=== PATIENT | male | born 1950 | race Hispanic/Latino ===

== ENCOUNTER 2017-03-16 20:38 | Emergency (ER) | payer MEDICARE, OTHER ==
[2017-03-16 20:38] VITALS: BMI 22.8
[2017-03-16 20:44] VITALS: BP 153/102; PULSE 94; RESP 18; TEMP 98; O2SAT 100
--- NOTE | 2017-03-16 21:04 | ED PDOC ---
HPI: Psych/Substance Abuse Time Seen by Provider: 03/16/17 20:48 Chief Complaint (Nursing): Alcohol Ingestion Chief Complaint (Provider): etoh History Per: Patient, EMS Additional History Per: Patient, EMS Additional Complaint(s): 67 y/o male brought in by EMS for eval of possible alcohol intoxication. Patient states he was locked out of his apartment due to financial issues so he went to sleep in front of his door. Patient states he was woken up by EMS and brought here. Patient admits to drinking tonight. Denies acute medical or psychiatric complaints. Past Medical History Reviewed: Historical Data, Nursing Documentation, Vital Signs Vital Signs: Last Vital Signs Temp 98 F 03/16/17 20:41 Pulse 94 H 03/16/17 20:41 Resp 18 03/16/17 20:41 BP 153/102 H 03/16/17 20:41 Pulse Ox 100 03/16/17 20:41 - Medical History PMH: Atrial Fibrillation, Back Problems, Benign Prostatic Hyperplasia, Fractures (r ankle fracture), HTN, Pulmonary Embolism Denies: HIV, Chronic Kidney Disease - Surgical History Surgical History: Tonsillectomy - Family History Family History: States: Unknown Family Hx - Home Medications Home Medications: Ambulatory Orders Medication Instructions Recorded Finasteride [Proscar] 5 mg PO DAILY 09/19/16 Naproxen [Naprosyn Tab] 250 mg PO BID PRN 09/19/16 Tamsulosin [Flomax] 0.4 mg PO DAILY 09/19/16 oxyCODONE/Acetaminophen [Percocet 1 tab PO QID PRN #20 tab 09/19/16 5/325 mg Tab] Ascorbate Calcium [Vitamin C] 500 mg PO DAILY 10/06/16 Bimatoprost [Lumigan] 1 drop EACHEYE HS 10/06/16 Multivitamin [Multi-Vitamin Daily] 1 tab PO DAILY 10/06/16 Timolol [Betimol] 1 drop EACHEYE DAILY 10/06/16 Vitamin B Complex [Super B-50 1 cap PO DAILY 10/06/16 Complex] Folic Acid 1 mg PO DAILY tab 10/09/16 Bimatoprost [Lumigan] 1 drop EACHEYE HS 10/17/16 Famotidine [Pepcid] 20 mg PO DAILY tab 10/17/16 Finasteride [Proscar] 5 mg PO DAILY tab 10/17/16 Latanoprost 0.005% Opht [Xalatan 1 drop OU HS bottle 10/17/16 Opht] Metoprolol Tartrate [Lopressor] 12.5 mg PO Q12 tab 10/17/16 Rivaroxaban [Xarelto] 15 mg PO BIDWM #60 tab 10/17/16 Thiamine [Vitamin B1 Tab] 100 mg PO DAILY #30 tab 10/17/16 - Allergies Allergies/Adverse Reactions: Allergies Allergy/AdvReac Type Severity Reaction Status Date / Time PCN Allergy Uncoded 09/19/16 13:14 Review of Systems ROS Statement: Except As Marked, All Systems Reviewed And Found Negative Physical Exam - Reviewed Nursing Documentation Reviewed: Yes Vital Signs Reviewed: Yes - Physical Exam Appears: Positive for: Well, Non-toxic, No Acute Distress Head Exam: Positive for: ATRAUMATIC, NORMAL INSPECTION, NORMOCEPHALIC Skin: Positive for: Normal Color Eye Exam: Positive for: Normal appearance ENT: Positive for: Normal ENT Inspection Cardiovascular/Chest: Positive for: Regular Rate, Rhythm Respiratory: Positive for: Normal Breath Sounds Gastrointestinal/Abdominal: Positive for: Normal Exam Back: Positive for: Normal Inspection Extremity: Positive for: Normal ROM Neurologic/Psych: Positive for: Alert, Oriented - Laboratory Results Result Diagrams: 03/16/17 21:48 03/16/17 21:48 - ECG O2 Sat by Pulse Oximetry: 100 ED OBSERVATION Discharge: Yes Date of observation admission: 03/16/17 Time of observation admission: 22:48 - Observation admission statement Patient is being placed in observation because:: acute alcohol intoxication - Goals of Observation Goals of observation are:: observe for clinical sobriety - Progress Note Progress Note: 03/16/17 22:48 patient sleeping; arousable to verbal stimuli 03/17/17 2:00 Patient slepeing; arousable to verbal stimuli 5:00 Patient awake, alert, oriented x3; ambulating steady gait. Stable for discharge. Disposition - Clinical Impression Clinical Impression: Alcohol intoxication - Patient ED Disposition Is Patient to be Admitted: No - Disposition Disposition: Routine/Home Disposition Time: 04:55 Condition: STABLE Instructions: Alcohol Intoxication (ED)
[2017-03-16 22:27] LABS: ALB/GLOB RATIO 1.7 (1.0-2.1); ALKALINE PHOSPHATASE 45 U/L (38-126); ALT/SGPT 170 U/L (21-72); AST/SGOT 286 U/L (17-59); BILIRUBIN,TOTAL 0.9 mg/dl (0.2-1.3); BLOOD UREA NITROGEN 12 mg/dl (9-20); CALCIUM 8.6 mg/dL (8.4-10.2); CARBON DIOXIDE 26 mmol/L (22-30); CHLORIDE 106 mmol/L (98-107); GFR AFRICAN-AMERICAN > 60; GLUCOSE,RANDOM 96 mg/dL (75-110); POTASSIUM 3.4 MMOL/L (3.6-5.0); SODIUM 148 mmol/l (132-148); TOTAL PROTEIN 6.6 G/DL (6.3-8.2)
[2017-03-16 22:39] LABS: BASO % 0.4 % (0.0-2.0); EOS # 0.1 K/uL (0.0-0.7); EOS % 4.6 % (0.0-4.0); HEMATOCRIT 42.7 % (35.0-51.0); LYMPH # 0.6 K/uL (1.0-4.3); LYMPH % 20.9 % (20.0-40.0); MEAN CELL VOLUME 93.1 fl (80.0-94.0); MEAN CORPUSCULAR HEMOGLOBIN 30.7 pg (27.0-31.0); MEAN CORPUSCULAR HGB CONC 32.9 g/dL (33.0-37.0); MONO # 0.5 K/uL (0.0-0.8); MONO % 16.1 % (0.0-10.0); NEUT # 1.6 K/uL (1.8-7.0); NRBC % 0.6 % (0.0-0.0); RED CELL DISTRIBUTION WIDTH 13.8 % (11.5-14.5); WHITE BLOOD COUNT 2.8 K/uL (4.8-10.8)
[2017-03-16 22:46] LABS: ALCOHOL SERUM 369 mg/dl (0-10)
== END 2017-03-17 06:26 | disposition home or self-care (01) ==
LOC: H.ER 20:38
DX: F10.129 Alcohol abuse with intoxication, unspecified (principal)

== ENCOUNTER 2017-03-17 17:46 | Inpatient (IN) | payer MEDICARE, OTHER ==
[2017-03-17 17:47] VITALS: BMI 22.8
[2017-03-17] MEDS ORDERED: Multivitamin (MVI) 10 ML, Thiamine 100 MG, Folic Acid 1 MG in Sodium Chloride 0.9% 1,00... IV ONE (18:14)
--- NOTE | 2017-03-17 18:41 | ED PDOC ---
HPI: Psych/Substance Abuse Chief Complaint (Provider): Weakness, Shaking ED Caveat: Acuity of Condition History Per: Patient History/Exam Limitations: no limitations Onset/Duration Of Symptoms: Hrs Current Symptoms Are (Timing): Still Present Suicide/Self Injury Attempted (Context): None Ingestion Of Substance: etoh Modifying Factor(s): Alcohol Associated Symptoms: denies: Anger, Depression, Paranoia, Suicidal Thoughts, Suicidal Plan Involuntary Hold By: None Additional Complaint(s): 67 yo M w PMHx of HTN and chronic alcohol consumption presents to ER due to weakness and unsteady gate. He states that he cannot walk without assistance and that he is disoriented, despite his correct answers indicating otherwise. Pt had previously been in the ER overnight for etoh intoxication. He had been discharged upon improvement and stabilization of symptoms following his intoxication. He presently denies any etoh consumption during the day today. He also denies any nausea, vomiting, hallucinations, or suicidal thoughts. Otherwise, he denies chest pain, palpitations, SOB, dyspnea, cough, abdominal pain, hematuria, dysuria, or myalgias. <Michi Lovelace - Last Filed: 03/17/17 18:34> <Norma Read - Last Filed: 03/20/17 22:05> Time Seen by Provider: 03/17/17 18:11 Chief Complaint (Nursing): Weakness/Neurological Deficit Supervising Attending Note - Supervising Attending Note The Documented history was done by the: Physician Assistant Men'S Lacrosse Coach, Attending Physician The documented physical exam was done by the: Physician Assistant Men'S Lacrosse Coach, Attending Physician - Attestation: I have personally seen and examined this patient.: Yes I have fully participated in the care of the patient.: Yes I have reviewed all pertinent clinical information, including history, physical exam and plan: Yes <Norma Read - Last Filed: 03/20/17 22:05> Past Medical History Reviewed: Historical Data, Nursing Documentation, Vital Signs Vital Signs: Last Vital Signs Temp 97.1 F L 03/17/17 17:49 Pulse 136 H 03/17/17 17:49 Resp 18 03/17/17 17:49 BP 132/100 H 03/17/17 17:49 Pulse Ox 96 03/17/17 17:49 - Medical History PMH: Atrial Fibrillation, Back Problems, Benign Prostatic Hyperplasia, Fractures (r ankle fracture), HTN, Pulmonary Embolism Denies: HIV, Chronic Kidney Disease - Surgical History Surgical History: Tonsillectomy - Family History Family History: States: Unknown Family Hx <Michi Lovelace T - Last Filed: 03/17/17 18:34> Vital Signs: Last Vital Signs Temp 98.6 F 03/17/17 19:40 Pulse 114 H 03/17/17 19:37 Resp 18 03/17/17 19:37 BP 106/67 03/17/17 19:37 Pulse Ox 96 03/17/17 19:37 <Norma Read - Last Filed: 03/20/17 22:05> - Home Medications Home Medications: Ambulatory Orders Medication Instructions Recorded Naproxen [Naprosyn Tab] 250 mg PO BID PRN 09/19/16 Tamsulosin [Flomax] 0.4 mg PO DAILY 09/19/16 Ascorbate Calcium [Vitamin C] 500 mg PO DAILY 10/06/16 Bimatoprost [Lumigan] 1 drop EACHEYE HS 10/06/16 Multivitamin [Multi-Vitamin Daily] 1 tab PO DAILY 10/06/16 Timolol [Betimol] 1 drop EACHEYE DAILY 10/06/16 Vitamin B Complex [Super B-50 1 cap PO DAILY 10/06/16 Complex] Folic Acid 1 mg PO DAILY tab 10/09/16 Finasteride [Proscar] 5 mg PO DAILY tab 10/17/16 Latanoprost 0.005% Opht [Xalatan 1 drop OU HS bottle 10/17/16 Opht] Rivaroxaban [Xarelto] 15 mg PO BIDWM #60 tab 10/17/16 Thiamine [Vitamin B1 Tab] 100 mg PO DAILY #30 tab 10/17/16 - Allergies Allergies/Adverse Reactions: Allergies Allergy/AdvReac Type Severity Reaction Status Date / Time PCN Allergy RASH Uncoded 03/17/17 19:39 Review of Systems ROS Statement: Except As Marked, All Systems Reviewed And Found Negative (see HPI) <Michi Lovelace T - Last Filed: 03/17/17 18:34> Physical Exam - Reviewed Nursing Documentation Reviewed: Yes Vital Signs Reviewed: Yes - Physical Exam Appears: Positive for: Non-toxic, No Acute Distress Head Exam: Positive for: ATRAUMATIC, NORMAL INSPECTION, NORMOCEPHALIC Skin: Positive for: Normal Color, Warm, Diaphoresis (mild) Eye Exam: Positive for: Normal appearance, EOMI ENT: Negative for: Pharyngeal Erythema Neck: Positive for: Normal, Painless ROM Cardiovascular/Chest: Positive for: Tachycardia, Other (Regular Rhythm). Negative for: Edema Respiratory: Positive for: Normal Breath Sounds. Negative for: Wheezing Gastrointestinal/Abdominal: Positive for: Normal Exam, Soft. 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, Oriented, Other (+tremors, especially b/l upper extremities) <Michi Lovelace - Last Filed: 03/17/17 18:34> - ECG O2 Sat by Pulse Oximetry: 96 - Progress ED Course And Treament: 67 yo M w PMHx of HTN and chronic alcohol consumption presents to ER due to weakness and unsteady gate -CBC -CMP -PT/PTT -VBG -EKG -Alcohol Serum -CMP -CPK -Urine Drug Screen -Lipase -Mg/Phos -Trop -FS Glucose -Banana Bag -NS 1L @ 125mL/hr -Librium 25mg PO STAT -Ativan 1mg IVP STAT -To be admitted for etoh withdrawal, pending ER labs <Michi Lovelace - Last Filed: 03/17/17 18:34> - Laboratory Results Result Diagrams: 03/20/17 09:15 03/20/17 09:15 - ECG ECG: Positive for: Interpreted By Me ECG Rhythm: Positive for: Sinus Tachycardia, Nonspecific Changes Pulse Ox Interpretation: Normal - Radiology X-Ray: Interpreted by Me X-Ray Interpretation: Cardiomegaly (perihilar thickening) - Progress ED Course And Treament: 730p Pt's troponin elevated On reevaluation, pt reports feeling better post ativan 1mg but still tachycardic and slightly tremorous. He denies having any chest pain or shortness of breath. +history atrial fib and htn and reports compliance w medication ?Reports last saw tire tester Dr Arredondo 2 weeks ago and having a stress test 3 weeks ago that was normal. DW Dr Ayala medical service and Dr Lemus cardiology. ASA ordered. - Critical Care Total Time (In Min): 30 Documented Critical Care: Time excludes all time spent performint seperately billable procedures <Norma Read - Last Filed: 03/20/17 22:05> Disposition - Patient ED Disposition Is Patient to be Admitted: Yes - Disposition Disposition Time: 18:45 <Michi Lovelace - Last Filed: 03/17/17 18:34> Counseled Patient/Family Regarding: Studies Performed, Diagnosis - Pt Status Changed To: Hospital Disposition Of: Inpatient - Admit Certification Admit to Inpatient:: After my assessment, the patient will require hospitalization for at least two midnights. This is because of the severity of symptoms shown, intensity of services needed, and/or the medical risk in this patient being treated as an outpatient. - POA Present On Arrival: None <Norma Read - Last Filed: 03/20/17 22:05> - Clinical Impression Clinical Impression: Alcoholism /alcohol abuse, Elevated troponin, Alcohol withdrawal - Disposition Condition: GUARDED
[2017-03-17 18:42] LABS: BASO # 0.1 K/uL (0.0-0.2); HEMATOCRIT 46.2 % (35.0-51.0); LYMPH # 0.2 K/uL (1.0-4.3); LYMPH % 3.5 % (20.0-40.0); MEAN CELL VOLUME 94.4 fl (80.0-94.0); MEAN CORPUSCULAR HEMOGLOBIN 30.8 pg (27.0-31.0); MEAN CORPUSCULAR HGB CONC 32.6 g/dL (33.0-37.0); MEAN PLATELET VOLUME 9.2 fl (7.2-11.7); MONO # 0.8 K/uL (0.0-0.8); MONO % 11.8 % (0.0-10.0); NEUT % 83.7 % (50.0-75.0); NRBC % 0.1 % (0.0-0.0); PLATELET COUNT 127 K/uL (130-400); RED CELL DISTRIBUTION WIDTH 13.8 % (11.5-14.5); WHITE BLOOD COUNT 7.1 K/uL (4.8-10.8)
[2017-03-17 18:55] LABS: PARTIAL THROMBOPLASTIN TIME 22.1 Seconds (25.6-37.1)
[2017-03-17 19:02] LABS: ALB/GLOB RATIO 1.8 (1.0-2.1); ALCOHOL SERUM < 10 mg/dl (0-10); ALKALINE PHOSPHATASE 54 U/L (38-126); ALT/SGPT 180 U/L (21-72); AST/SGOT 276 U/L (17-59); BILIRUBIN,TOTAL 3.5 mg/dl (0.2-1.3); BLOOD UREA NITROGEN 18 mg/dl (9-20); CALCIUM 9.2 mg/dL (8.4-10.2); CARBON DIOXIDE 22 mmol/L (22-30); CHLORIDE 95 mmol/L (98-107); GFR AFRICAN-AMERICAN > 60; GLUCOSE,RANDOM 161 mg/dL (75-110); LIPASE 143 U/L (23-300); MAGNESIUM 1.2 MG/DL (1.6-2.3); PHOSPHOROUS 2.2 mg/dl (2.5-4.5); POTASSIUM 3.6 MMOL/L (3.6-5.0); SODIUM 141 mmol/l (132-148)
[2017-03-17 19:17] LABS: VENOUS BLOOD GAS PCO2 29 mmHg (40-60); VENOUS BLOOD PH 7.51 (7.32-7.43)
[2017-03-17] MEDS ORDERED: K-Lyte 25meq EF Tab PO ONE ×2 (19:23→19:30)
[2017-03-17] MEDS ORDERED: Magnesium Sulfate 2 gm/50 ml 2 GM/50 ML BAG IVPB ONE (19:35)
[2017-03-17] MEDS ORDERED: Potassium & Sodium Phosphate PO ONE (19:45)
[2017-03-17] MEDS ORDERED: Magnesium Sulfate 2 gm/50 ml 2 GM/50 ML BAG ONE (19:49)
[2017-03-17] MEDS ORDERED: Aspirin 325 mg EC Tablets PO ONE (19:49)
[2017-03-17 20:06] LABS: NEUTROPHIL 81 % (42-75); REACTIVE LYMPHOCYTES 1 % (0-0); TOTAL CELLS COUNTED 100
[2017-03-17 20:07] LABS: LARGE PLATELETS PRESENT
--- NOTE | 2017-03-17 21:44 | CP.PCM.CON ---
History of Present Illness - History of Present Illness History of Present Illness: 67 y/o with etoh withdrawl. had tachycardia and htn with mildly positive trop today. no cp, sob, lh, dizzyness. no hx of cad. pt has a hx of multifocal pe , no hypercoag state and no dvt. pt has a left shift w/o leukocytosis. denies f/c. not on anticoagulation, however meds are not clear at this point. Review of Systems - Constitutional Constitutional: absent: As Per HPI, Anorexia, Chills, Daytime Sleepiness, Excessive Sweating, Fatigue, Fever, Frequent Falls, Headache, Increased Appetite , Lethargy, Malaise, Night Sweats, Snoring, Sleep Apnea, Weight Gain, Weight Loss, Weakness, Other - EENT Eyes: absent: As Per HPI, Blind Spots, Blurred Vision, Change in Vision, Decreased Night Vision, Diplopia, Discharge, Dry Eye, Exophthalmos, Floaters, Irritation, Itchy Eyes, Loss of Peripheral Vision, Pain, Photophobia, Requires Corrective Lenses, Sees Flashes, Spots in Vision, Tunnel Vision, Other Visual Disturbances, Loss of Vision, Other Ears: absent: As Per HPI, Decreased Hearing, Ear Discharge, Ear Pain, Tinnitus, Abnormal Hearing, Disequilibrium, Dizziness, Other Nose/Mouth/Throat: absent: As Per HPI, Epistaxis, Nasal Congestion, Nasal Discharge, Nasal Obstruction, Nasal Trauma, Nose Pain, Post Nasal Drip, Sinus Pain, Sinus Pressure, Bleeding Gums, Change in Voice, Dental Pain, Dry Mouth, Dysphagia, Halitosis, Hoarsness, Lip Swelling, Mouth Lesions, Mouth Pain, Odynophagia, Sore Throat, Throat Swelling, Tongue Swelling, Facial Pain, Neck Pain, Neck Mass, Other - Cardiovascular Cardiovascular: Rapid Heart Rate. absent: As Per HPI, Acrocyanosis, Chest Pain , Chest Pain at Rest, Chest Pain with Activity, Claudication, Diaphoresis, Dyspnea, Dyspnea on Exertion, Edema, Irregular Heart Rhythm, Pain Radiating to Arm/Neck/Jaw, Leg Edema, Leg Ulcers, Lightheadedness, Orthopnea, Palpitations, Paroxysmal Nocturnal Dyspnea, Pedal Edema, Radiating Pain, Slow Heart Rate, Syncope, Other - Respiratory Respiratory: absent: As Per HPI, Cough, Dyspnea, Hemoptysis, Dyspnea on Exertion , Wheezing, Snoring, Stridor, Pain on Inspiration, Chest Congestion, Excessive Mucous Production, Change in Mucous Color, Pain with Coughing, Other - Gastrointestinal Gastrointestinal: absent: As Per HPI, Abdominal Pain, Belching, Bloating, Change in Bowel Habits, Change in Stool Character, Coffee Ground Emesis, Constipation, Cramping, Diarrhea, Dyspepsia, Dysphagia, Early Satiety, Excessive Flatus, Fecal Incontinence, Heartburn, Hematemesis, Hematochezia, Loose Stools, Melena, Nausea, Odynophagia, Temesmus, Vomiting, Other - Genitourinary Genitourinary: absent: As Per HPI, Change in Urinary Stream, Difficulty Urinating, Dysuria, Flank Pain, Hematuria, Pyuria, Nocturia, Urinary Incontinence, Urinary Frequency, Urinary Hesitance, Urinary Urgency, Voiding Freq/Small Amts, Freq UTI, Hx Renal/Bladder Calculi, Hx /Renal Surgery, Bladder Distension, Other - Musculoskeletal Musculoskeletal: absent: As Per HPI, Abnormal Gait, Arthralgias, Atrophy, Back Pain, Deformity, Joint Swelling, Limited Range of Motion, Loss of Height, Muscle Cramps, Muscle Weakness, Myalgias, Neck Pain, Numbness, Radiating Pain into Limb, Stiffness, Tingling, Other - Integumentary Integumentary: absent: As Per HPI, Acne, Alopecia, Bleeding Lesions, Change in Hair, Change in Nails, Change in Pigmentation, Changing Lesions, Dry Skin, Erythema, Furuncle, Hirsutism, Lesions, New Lesions, Non-Healing Lesions, Photosensitivity, Pruritus, Rash, Skin Pain, Skin Ulcer, Sores, Striae, Swelling , Unusual Bruising, Wounds, Jaundice, Other - Neurological Neurological: Abnormal Speech. absent: As Per HPI, Abnormal Gait, Abnormal Hearing, Abnormal Movements, Behavioral Changes, Burning Sensations, Confusion, Convulsions, Disequilibrium, Dizziness, Numbness, Focal Weakness, Frequent Falls , Headaches, Lack of Coordination, Loss of Vision, Memory Loss, Paresthesias, Radicular Pain, Restless Legs, Sensory Deficit, Syncope, Tingling, Tremor, Vertigo, Weakness, Other Visual Disturbances, Other - Psychiatric Psychiatric: As Per HPI - Endocrine Endocrine: absent: As Per HPI, Change in Body Appearance, Change in Libido, Cold Intolorance, Deepening of Voice, Excessive Sweating, Fatigue, Flushing, Heat Intolorance, Increase in Ring/Shoe/Hat Size, Palpitations, Polydipsia, Polyphagia, Polyuria, Other - Hematologic/Lymphatic Hematologic: absent: As Per HPI, Easy Bleeding, Easy Bruising, Lymphadenopathy, Other Past Patient History - Tetanus Immunizations Tetanus Immunization: Unknown - Past Medical History & Family History Past Medical History?: Yes - Past Social History Smoking Status: Never Smoked Alcohol: > 2 Drinks/Day Drugs: Denies Domestic Violence: Negative - CARDIAC Hx Atrial Fibrillation: Yes Hx Hypertension: Yes - PULMONARY Hx Pulmonary Embolism: Yes - NEUROLOGICAL Hx Neurological Disorder: No - HEENT Hx HEENT Problems: Yes Hx Glaucoma: Yes - RENAL Hx Chronic Kidney Disease: No - ENDOCRINE/METABOLIC Hx Endocrine Disorders: No - HEMATOLOGICAL/ONCOLOGICAL Hx Human Immunodeficiency Virus (HIV): No - INTEGUMENTARY Hx Dermatological Problems: No - MUSCULOSKELETAL/RHEUMATOLOGICAL Hx Fractures: Yes (r ankle fracture) - GASTROINTESTINAL Hx Gastrointestinal Disorders: No - GENITOURINARY/GYNECOLOGICAL Hx Genitourinary Disorders: Yes Hx Prostate Problems: Yes (BPH) - PSYCHIATRIC Hx Psychophysiologic Disorder: No Hx Substance Use: Yes (etoh) - SURGICAL HISTORY Hx Tonsillectomy: Yes - ANESTHESIA Hx Anesthesia: Yes Hx Anesthesia Reactions: No Hx Malignant Hyperthermia: No Meds Allergies/Adverse Reactions: Allergies Allergy/AdvReac Type Severity Reaction Status Date / Time PCN Allergy RASH Uncoded 03/17/17 19:39 - Medications Medications: Current Medications Multivitamins/Vitamin C 10 ml/Thiamine HCl 100 mg/ Folic Acid 1 mg/ Sodium Chloride 1,011.2 mls @ 125 mls/hr IV .[id number] ONE Stop: 03/18/17 02:19 Last Admin: 03/17/17 19:33 Dose: 125 mls/hr Physical Exam - Constitutional Appears: Toxic - Head Exam Head Exam: ATRAUMATIC, NORMAL INSPECTION, NORMOCEPHALIC - Eye Exam Eye Exam: EOMI, Normal appearance, PERRL Pupil Exam: NORMAL ACCOMODATION, PERRL - ENT Exam ENT Exam: Mucous Membranes Moist, Normal Exam - Neck Exam Neck exam: Positive for: Normal Inspection - Respiratory Exam Respiratory Exam: Clear to Auscultation Bilateral, NORMAL BREATHING PATTERN - Cardiovascular Exam Cardiovascular Exam: Tachycardia, REGULAR RHYTHM, +S1, +S2, Systolic Murmur - GI/Abdominal Exam GI & Abdominal Exam: Normal Bowel Sounds, Soft. absent: Tenderness - Rectal Exam Rectal Exam: Deferred - Extremities Exam Extremities exam: Positive for: normal inspection - Back Exam Back exam: NORMAL INSPECTION - Neurological Exam Neurological exam: Alert, Oriented x3 - Psychiatric Exam Psychiatric exam: Flat Affect - Skin Skin Exam: Normal Color Results - Vital Signs Recent Vital Signs: Last Vital Signs Temp 98.6 F 03/17/17 19:40 Pulse 114 H 03/17/17 19:37 Resp 18 03/17/17 19:37 BP 106/67 03/17/17 19:37 Pulse Ox 96 03/17/17 19:37 - Labs Result Diagrams: 03/17/17 18:30 03/17/17 18:30 Labs: Laboratory Results - last 24 hr 03/17/17 20:09 CK-MB (Mass) 2.72 - EKG Data EKG Interpreted by: Myself EKG shows normal: Sinus rhythm Rate: Tachycardia - EKG Data EKG comments: st withpvcs, no st changes Assessment & Plan (1) Alcohol withdrawal Status: Acute (2) Alcoholism /alcohol abuse Status: Acute (3) Elevated troponin Status: Acute (4) Hypertension Status: Acute (5) Pulmonary emboli Status: Chronic (6) Tachycardia Status: Acute - Assessment and Plan (Free Text) Plan: - echo - monitor trop - doppler LE's - If bp increases would use clonidine - bc x 2 r/o endocarditis (left shift w/o leukocytosis - etoh use) - pt had multifocal PE in 09/2016, no dvt and no hypercoag state. - no stress test at this time - repleat leonardo - ivf - tele monitor - 65 min total care time
[2017-03-18 02:27] LABS: RBC URINE < 1 /hpf (0-3); URINE BILIRUBIN SMALL (NEGATIVE); URINE BLOOD NEGATIVE (NEGATIVE); URINE COLOR AMBER (YELLOW); URINE GLUCOSE (UA) 150 mg/dL (Normal); URINE KETONE 80 mg/dL (NEGATIVE); URINE LEUKOCYTE ESTERASE NEG Leu/uL (Negative); URINE PROTEIN 100 mg/dL (NEGATIVE); WBC URINE 2 /hpf (0-5)
[2017-03-18 07:16] LABS: MEAN CELL VOLUME 92.2 fl (80.0-94.0); MEAN CORPUSCULAR HEMOGLOBIN 30.7 pg (27.0-31.0); MEAN CORPUSCULAR HGB CONC 33.3 g/dL (33.0-37.0); RED CELL DISTRIBUTION WIDTH 13.8 % (11.5-14.5); WHITE BLOOD COUNT 7.1 K/uL (4.8-10.8)
[2017-03-18 07:22] LABS: ALB/GLOB RATIO 1.6 (1.0-2.1); ALKALINE PHOSPHATASE 45 U/L (38-126); ALT/SGPT 137 U/L (21-72); AST/SGOT 168 U/L (17-59); BILIRUBIN,TOTAL 2.3 mg/dl (0.2-1.3); BLOOD UREA NITROGEN 19 mg/dl (9-20); CALCIUM 8.4 mg/dL (8.4-10.2); CARBON DIOXIDE 30 mmol/L (22-30); CHLORIDE 99 mmol/L (98-107); GFR AFRICAN-AMERICAN > 60; GLUCOSE,RANDOM 96 mg/dL (75-110); MAGNESIUM 1.8 MG/DL (1.6-2.3); POTASSIUM 3.4 MMOL/L (3.6-5.0); SODIUM 139 mmol/l (132-148); TOTAL PROTEIN 6.2 G/DL (6.3-8.2)
[2017-03-18 07:49] LABS: THYROID STIMULATING HORMONE 4.15 mIU/ML (0.46-4.68)
[2017-03-18] MEDS ORDERED: Patient's Own Med (Multivitamin [Multi-Vitamin Daily] 1 TAB) PO SCH (09:00)
[2017-03-18] MEDS ORDERED: TIMOLOL EACHEYE SCH (09:00)
[2017-03-18] MEDS ORDERED: ASCORBATE CALCIUM 500 MG PO SCH (09:00)
[2017-03-18] MEDS ORDERED: Patient's Own Med (Vitamin B Complex [Super B-50 Complex] 1 CAP) PO SCH (09:00)
[2017-03-18] MEDS: Multivitamin Vitamin B Complex (Nephro-Vite) Tab PO SCH (09:47)
--- NOTE | 2017-03-18 10:35 | US ---
PROCEDURE: Bilateral lower extremity venous duplex Doppler. HISTORY: hx pe/DVT COMPARISON: Bilateral lower extremity venous ultrasound performed 10/07/16 TECHNIQUE: Bilateral common femoral, superficial femoral, popliteal and posterior tibial veins were evaluated. Flow was assessed with color Doppler, compressibility, assessment of phasic flow and augmentation response. FINDINGS: COMMON FEMORAL VEIN: Right CFV: Unremarkable. Left CFV: Unremarkable. SUPERFICIAL FEMORAL VEIN: Right SFV: Unremarkable. Left SFV: Unremarkable. POPLITEAL VEIN: Right Popliteal: Unremarkable. Left Popliteal: Unremarkable. POSTERIOR TIBIAL VEIN: Right PTV: Unremarkable. Left PTV: Unremarkable. OTHER FINDINGS: None. IMPRESSION: No evidence of deep venous thrombosis.
--- NOTE | 2017-03-18 12:10 | CP.PCM.HP ---
<Tiffany Baeza - Last Filed: 03/18/17 14:51> History of Present Illness - History of Present Illness History of Present Illness: Patient seed and examined at bedside with attending. 67M p/w weakness and unsteady gate after being discharged for alcohol intoxication. He denies any visual disturbance, headaches, SOB, chest pain or palpitations associated with the unsteady gait and weakness. Otherwise, patient denies fevers, chills, N/V, diarrhea, or dysuria. PMH: h/o a-fib, HTN, BPH, h/o PE, alcohol abuse ALL: PCN FRANCI: See Med Rec Present on Admission - Present on Admission Any Indicators Present on Admission: Yes History of DVT/PE: Yes Review of Systems - Review of Systems All systems: reviewed and no additional remarkable complaints except - Constitutional Constitutional: Lethargy - EENT Ears: Dizziness Past Patient History - Tetanus Immunizations Tetanus Immunization: Unknown - Past Medical History & Family History Past Medical History?: Yes - Past Social History Smoking Status: Never Smoked - CARDIAC Hx Atrial Fibrillation: Yes Hx Hypertension: Yes - PULMONARY Hx Pulmonary Embolism: Yes - NEUROLOGICAL Hx Neurological Disorder: No - HEENT Hx HEENT Problems: Yes Hx Glaucoma: Yes - RENAL Hx Chronic Kidney Disease: No - ENDOCRINE/METABOLIC Hx Endocrine Disorders: No - HEMATOLOGICAL/ONCOLOGICAL Hx AIDS: No Hx Blood Transfusions: No Hx Human Immunodeficiency Virus (HIV): No - INTEGUMENTARY Hx Dermatological Problems: No - MUSCULOSKELETAL/RHEUMATOLOGICAL Hx Falls: Yes - GASTROINTESTINAL Hx Gastrointestinal Disorders: No - GENITOURINARY/GYNECOLOGICAL Hx Genitourinary Disorders: Yes Hx Prostate Problems: Yes (BPH) - PSYCHIATRIC Hx Substance Use: Yes (quit 12 years ago) - SURGICAL HISTORY Hx Surgeries: Yes Hx Tonsillectomy: Yes - ANESTHESIA Hx Anesthesia: Yes Hx Anesthesia Reactions: No Hx Malignant Hyperthermia: No Meds Allergies/Adverse Reactions: Allergies Allergy/AdvReac Type Severity Reaction Status Date / Time PCN Allergy RASH Uncoded 03/17/17 19:39 Physical Exam - Constitutional Appears: Well, Non-toxic, No Acute Distress - Head Exam Head Exam: ATRAUMATIC, NORMAL INSPECTION - Eye Exam Eye Exam: EOMI, PERRL. absent: Nystagmus - ENT Exam ENT Exam: Mucous Membranes Dry - Respiratory Exam Respiratory Exam: Clear to Auscultation Bilateral, NORMAL BREATHING PATTERN. absent: Rales, Wheezes - Cardiovascular Exam Cardiovascular Exam: REGULAR RHYTHM. absent: JVD - GI/Abdominal Exam GI & Abdominal Exam: Normal Bowel Sounds, Soft. absent: Tenderness - Extremities Exam Extremities exam: Positive for: normal capillary refill, pedal pulses present. Negative for: pedal edema - Neurological Exam Neurological exam: Alert - Psychiatric Exam Psychiatric exam: Normal Affect, Normal Mood - Skin Skin Exam: Normal Color, Warm Results - Vital Signs Recent Vital Signs: Last Vital Signs Temp 36.4 C L 03/18/17 08:00 Pulse 97 H 03/18/17 09:00 Resp 20 03/18/17 08:00 BP 128/85 03/18/17 08:00 Pulse Ox 98 03/18/17 08:00 - Labs Result Diagrams: 03/18/17 05:30 03/18/17 05:30 Labs: Laboratory Results - last 24 hr 03/17/17 03/17/17 03/17/17 20:09 23:43 23:43 WBC RBC Hgb Hct MCV MCH MCHC RDW Plt Count Sodium Potassium Chloride Carbon Dioxide Anion Gap BUN Creatinine Est GFR ( Amer) Est GFR (Non-Af Amer) Random Glucose Calcium Magnesium Total Bilirubin AST ALT Alkaline Phosphatase Total Creatine Kinase CK-MB (Mass) 2.72 Troponin I Total Protein Albumin Globulin Albumin/Globulin Ratio Free T4 Total T3 TSH 3rd Generation Urine Color [place] Urine Clarity Slighty-cloudy Urine pH 5.0 Ur Specific [place] 1.031 H Urine Protein 100 Urine Glucose (UA) 150 Urine Ketones 80 Urine Blood Negative Urine Nitrate Negative Urine Bilirubin Small Urine Urobilinogen 4.0 Ur Leukocyte Esterase Neg Urine RBC (Auto) < 1 Urine Microscopic WBC 2 Ur Squamous Epith Cells < 1 Hyaline Casts 3-5 H Urine Opiates Screen Negative Urine Methadone Screen Negative Ur Barbiturates Screen Negative Ur Phencyclidine Scrn Negative Ur Amphetamines Screen Negative U Benzodiazepines Scrn Negative U Oth Cocaine Metabols Negative U Cannabinoids Screen Negative 03/18/17 03/18/17 03/18/17 02:38 05:30 05:30 WBC RBC Hgb Hct MCV MCH MCHC RDW Plt Count Sodium 139 Potassium 3.4 L Chloride 99 Carbon Dioxide 30 Anion Gap 13 BUN 19 Creatinine 0.7 L Est GFR ( Amer) > 60 Est GFR (Non-Af Amer) > 60 Random Glucose 96 Calcium 8.4 Magnesium 1.8 Total Bilirubin 2.3 H AST 168 H D ALT 137 H D Alkaline Phosphatase 45 Total Creatine Kinase 668 H CK-MB (Mass) 6.17 H Troponin I 0.6330 H* 0.5810 H* Total Protein 6.2 L Albumin 3.8 Globulin 2.4 Albumin/Globulin Ratio 1.6 Free T4 1.16 Total T3 0.963 L TSH 3rd Generation 4.15 Urine Color Urine Clarity Urine pH Ur Specific [place] Urine Protein Urine Glucose (UA) Urine Ketones Urine Blood Urine Nitrate Urine Bilirubin Urine Urobilinogen Ur Leukocyte Esterase Urine RBC (Auto) Urine Microscopic WBC Ur Squamous Epith Cells Hyaline Casts Urine Opiates Screen Urine Methadone Screen Ur Barbiturates Screen Ur Phencyclidine Scrn Ur Amphetamines Screen U Benzodiazepines Scrn U Oth Cocaine Metabols U Cannabinoids Screen 03/18/17 05:30 WBC 7.1 RBC 4.56 Hgb 14.0 Hct 42.0 MCV 92.2 D MCH 30.7 MCHC 33.3 RDW 13.8 Plt Count 117 L Sodium Potassium Chloride Carbon Dioxide Anion Gap BUN Creatinine Est GFR ( Amer) Est GFR (Non-Af Amer) Random Glucose Calcium Magnesium Total Bilirubin AST ALT Alkaline Phosphatase Total Creatine Kinase CK-MB (Mass) Troponin I Total Protein Albumin Globulin Albumin/Globulin Ratio Free T4 Total T3 TSH 3rd Generation Urine Color Urine Clarity Urine pH Ur Specific [place] Urine Protein Urine Glucose (UA) Urine Ketones Urine Blood Urine Nitrate Urine Bilirubin Urine Urobilinogen Ur Leukocyte Esterase Urine RBC (Auto) Urine Microscopic WBC Ur Squamous Epith Cells Hyaline Casts Urine Opiates Screen Urine Methadone Screen Ur Barbiturates Screen Ur Phencyclidine Scrn Ur Amphetamines Screen U Benzodiazepines Scrn U Oth Cocaine Metabols U Cannabinoids Screen Assessment & Plan (1) Elevated troponin I level Assessment and Plan: Currently asymptomatic, hx, PE and a-fib, EKG- SR, EXT duplex negative, CXR clear, cardiology does not feel elevation due to ischemia. - Cardiology Consult ( Dr Lemus): Echo, Lopressor, ASA, rpt BMP, Stress Test after ?withdrawal - Echocardiography - Aspirin 81mg, PO, Daily - Lopressor 12.5mg, PO, Q6H - Labs in AM Status: Acute (2) Alcohol withdrawal Assessment and Plan: CIWA- 3, started on Librium 25mg, PO, Q6H Status: Acute (3) DVT prophylaxis Assessment and Plan: Currently on DVT Treatment with Xarelto Status: Acute (4) History of pulmonary embolism Assessment and Plan: Continue with Xarelto. Status: Acute (5) BPH (benign prostatic hyperplasia) Assessment and Plan: Stable, c/w home medication Status: Acute <Ayala,Alex K - Last Filed: 04/02/17 15:36> Results - Vital Signs Recent Vital Signs: Last Vital Signs Temp 98.3 F 03/24/17 12:01 Pulse 83 03/24/17 16:39 Resp 18 03/24/17 12:01 BP 124/81 03/24/17 16:39 Pulse Ox 95 03/24/17 12:01 - Labs Result Diagrams: 03/24/17 05:20 03/24/17 05:20 Assessment & Plan - Assessment and Plan (Free Text) Assessment: Patient was personally seen and examined by me in rounds with residents. Available labs and diagnostic data reviewed. Case, patient's condition and management plan discussed with residents in rounds. Agree with resident's progress note. Plan: As ordered.
--- NOTE | 2017-03-18 12:39 | RAD ---
HISTORY: tachycardia COMPARISON: Chest x-ray performed 10/06/16 TECHNIQUE: Chest, one view. FINDINGS: Examination limited by habitus and hypoinflation. LUNGS: No focal consolidation. Please note that chest x-ray has limited sensitivity for the detection of pulmonary masses. PLEURA: No significant pleural effusion identified. No definite pneumothorax . CARDIOVASCULAR: Cardiomegaly. OSSEOUS STRUCTURES: Osseous demineralization. Degenerative changes. VISUALIZED UPPER ABDOMEN: Unremarkable. OTHER FINDINGS: None. IMPRESSION: No focal consolidation, significant pleural effusion, or definite pneumothorax identified. Cardiomegaly.
--- NOTE | 2017-03-18 13:01 | CP.PCM.PN ---
Subjective - Date & Time of Evaluation Date of Evaluation: 03/18/17 Time of Evaluation: 12:57 - Subjective Subjective: pt feels better, denies cp, sob, palp, lh, f/c/n/v. Denies neuro sx, BCx2 pending. no sustained arrythmias on tele. Objective - Vital Signs/Intake and Output Vital Signs (last 24 hours): Temp Pulse Resp BP Pulse Ox 97.5 F L 113 H 16 118/81 98 03/18/17 12:31 03/18/17 12:31 03/18/17 12:31 03/18/17 12:31 03/18/17 12:31 - Medications Medications: Current Medications Ascorbic Acid (Vitamin C 500 Mg Tab) 500 mg PO DAILY [facility] Last Admin: 03/18/17 09:48 Dose: 500 mg Aspirin (Aspirin Chewable) 81 mg PO DAILY [facility] Chlordiazepoxide (Librium) 25 mg PO Q6 [facility] Last Admin: 03/18/17 12:19 Dose: 25 mg Finasteride (Proscar) 5 mg PO DAILY [facility] Last Admin: 03/18/17 09:47 Dose: 5 mg Folic Acid (Folic Acid) 1 mg PO DAILY [facility] Last Admin: 03/18/17 09:47 Dose: 1 mg Latanoprost (Xalatan Opht) 1 drop OU HS [facility] Metoprolol Tartrate (Lopressor) 12.5 mg PO Q8 [facility] Naproxen (Naprosyn Tab) 250 mg PO BID PRN PRN Reason: Pain, moderate (4-7) Potassium Chloride (Potassium Chloride Oral Soln) 40 meq PO Q6 [facility] Stop: 03/18/17 22:01 Rivaroxaban (Xarelto) 15 mg PO BIDWM [facility] PRN Reason: Protocol Last Admin: 03/18/17 09:48 Dose: 15 mg Tamsulosin HCl (Flomax) 0.4 mg PO DAILY [facility] Last Admin: 03/18/17 09:45 Dose: 0.4 mg Thiamine HCl (Vitamin B1 Tab) 100 mg PO DAILY [facility] Last Admin: 03/18/17 09:47 Dose: 100 mg Vitamin B Complex/Vit C/Folic Acid (Nephro-Teja) 1 tab PO DAILY [facility] Last Admin: 03/18/17 09:47 Dose: 1 tab - Labs Labs: 03/18/17 05:30 03/18/17 05:30 PT 10.5 Seconds (9.8-13.1) 03/17/17 18:30 INR 0.9 (0.9-1.2) 03/17/17 18:30 APTT 22.1 Seconds (25.6-37.1) L 03/17/17 18:30 - Head Exam Head Exam: ATRAUMATIC, NORMAL INSPECTION, NORMOCEPHALIC - Eye Exam Eye Exam: EOMI, Normal appearance, PERRL Pupil Exam: NORMAL ACCOMODATION, PERRL - ENT Exam ENT Exam: Mucous Membranes Moist, Normal Exam - Neck Exam Neck Exam: Full ROM, Normal Inspection. absent: Lymphadenopathy - Respiratory Exam Respiratory Exam: Clear to Ausculation Bilateral, NORMAL BREATHING PATTERN - Cardiovascular Exam Cardiovascular Exam: REGULAR RHYTHM, +S1, +S2, Murmur - GI/Abdominal Exam GI & Abdominal Exam: Soft, Normal Bowel Sounds. absent: Tenderness - Rectal Exam Rectal Exam: Deferred - Extremities Exam Extremities Exam: Full ROM, Normal Capillary Refill, Normal Inspection. absent : Joint Swelling, Pedal Edema - Back Exam Back Exam: NORMAL INSPECTION - Neurological Exam Neurological Exam: Alert, Awake, CN II-XII Intact, Oriented x3 - Psychiatric Exam Psychiatric exam: Normal Mood Assessment and Plan (1) Alcohol withdrawal Status: Acute (2) Alcoholism /alcohol abuse Status: Acute (3) Elevated troponin Status: Acute (4) Hypertension Status: Acute (5) Pulmonary emboli Status: Chronic (6) Tachycardia Status: Acute - Assessment and Plan (Free Text) Plan: - bc x 2 needed if not already drawn - echo images are limited for eval of veg - ef appears normal, contrast used however rwma are difficult to ascertain clearly. - pap are not elevated - given trop would add asa, low dose bb for hr control - repleat lytes. - i do not suspect acute ischemia as etiology of trop. pt has no sx of cp or sob. once withdrawl has resolved will consider st. - 75 min total care time.
[2017-03-18] MEDS: Sodium Chloride 0.9% 1,000 ML IV SCH (15:13)
[2017-03-18] MEDS: Potassium Chloride 20 mEq/15 ml LIQ UD PO SCH ×2 (17:48→21:37)
[2017-03-18] MEDS: Latanoprost 0.005% Opht SOUTION OU SCH (21:37)
[2017-03-18] MEDS ORDERED: Patient's Own Med (Bimatoprost [Lumigan] 1 DROP) EACHEYE SCH (22:00)
--- NOTE | 2017-03-18 23:28 | CARD ---
APPROVED REPORT EXAM: Two-dimensional and M-mode echocardiogram with Doppler, color Doppler with contrast. Other Information Quality : GoodRhythm : NSR INDICATION ELEVATTED TROPONIN Echo Enhancing Agent Indication: Rule out thrombus Agent/Amount Used: Definity 2D DIMENSIONS IVSd0.94 (0.7-1.1cm)LVDd6.06 (3.9-5.9cm) LVOT Diameter2.10 (1.8-2.4cm)PWd1.16 (0.7-1.1cm) IVSs1.09 (0.8-1.2cm)LVDs5.18 (2.5-4.0cm) FS (%) 14.5 %PWs1.34 (0.8-1.2cm) LVEF (%)35.0 (>50%) M-Mode DIMENSIONS Left Atrium (MM)4.86 (2.5-4.0cm)IVSd0.76 (0.7-1.1cm) Aortic Root3.11 (2.2-3.7cm)LVDd7.35 (4.0-5.6cm) Aortic Cusp Exc.2.05 (1.5-2.0cm)PWd0.96 (0.7-1.1cm) IVSs0.79 cmFS (%) 23 % LVDs5.66 (2.0-3.8cm)PWs1.39 cm Mitral Valve E/A ratio0.0 TDI E/Lateral E'0.0E/Medial E'0.0 Tricuspid Valve TR Peak [id number] Peak Gr.20mmHg [id number] LEFT VENTRICLE The left ventricle is normal size. There is normal left ventricular wall thickness. The systolic function is severely impaired. Apical hypokinesis Transmitral Doppler flow pattern is Grade I-abnormal relaxation pattern. No left ventricle thrombus noted on this study. RIGHT VENTRICLE The right ventricle is normal size. There is normal right ventricular wall thickness. The right ventricular systolic function is normal. ATRIA The left atrium is moderately dilated. The right atrium size is normal. AORTIC VALVE The aortic valve is mildly sclerotic. No aortic regurgitation is present. There is no aortic valvular stenosis. MITRAL VALVE The mitral valve is moderately thickened, a Mitral vegitation can not be ruled out, Clincal correlation is suggested There is no mitral valve stenosis. Mitral regurgitation is mild. TRICUSPID VALVE The tricuspid valve leaflets are thickened , but open well. There is mild tricuspid regurgitation. PULMONIC VALVE The pulmonary valve is normal in structure and function. There is no pulmonic valvular regurgitation. GREAT VESSELS The aortic root is normal in size. The IVC was not visualized. PERICARDIAL EFFUSION The pericardium appears normal. <Conclusion> Apical hypokinesis The left ventricle is normal size. There is normal left ventricular wall thickness. The systolic function is severely impaired. Apical hypokinesis No left ventricle thrombus noted on this study. The mitral valve is moderately thickened, a Mitral vegitation can not be ruled out, Clincal correlation is suggested Mitral regurgitation is mild.
--- NOTE | 2017-03-18 23:39 | CARD ---
APPROVED REPORT EKG Measurement Heart [id number] <Conclusion> Sinus tachycardia with fusion complexes Nonspecific ST and T wave abnormality Abnormal ECG
--- NOTE | 2017-03-18 23:57 | CARD ---
APPROVED REPORT EKG Measurement Heart [id number] <Conclusion> Sinus tachycardia with occasional premature ventricular complexes Otherwise normal ECG
--- NOTE | 2017-03-18 23:59 | CARD ---
APPROVED REPORT EKG Measurement Heart [id number] [place] [id number] <Conclusion> Sinus tachycardia with occasional premature ventricular complexes Nonspecific ST abnormality Abnormal ECG
[2017-03-19] MEDS ORDERED: Potassium Chloride 20 mEq/15 ml LIQ UD PO ONE (06:45)
[2017-03-19 07:14] LABS: MEAN CELL VOLUME 94.1 fl (80.0-94.0); MEAN CORPUSCULAR HEMOGLOBIN 30.9 pg (27.0-31.0); MEAN CORPUSCULAR HGB CONC 32.8 g/dL (33.0-37.0); WHITE BLOOD COUNT 6.6 K/uL (4.8-10.8)
[2017-03-19 07:35] LABS: ALB/GLOB RATIO 1.4 (1.0-2.1); ALKALINE PHOSPHATASE 43 U/L (38-126); ALT/SGPT 108 U/L (21-72); AST/SGOT 100 U/L (17-59); BILIRUBIN,TOTAL 2.3 mg/dl (0.2-1.3); BLOOD UREA NITROGEN 19 mg/dl (9-20); CALCIUM 8.5 mg/dL (8.4-10.2); CARBON DIOXIDE 28 mmol/L (22-30); CHLORIDE 104 mmol/L (98-107); GFR AFRICAN-AMERICAN > 60; GLUCOSE,RANDOM 112 mg/dL (75-110); MAGNESIUM 1.6 MG/DL (1.6-2.3); SODIUM 140 mmol/l (132-148); TOTAL PROTEIN 5.9 G/DL (6.3-8.2)
[2017-03-19] MEDS: Multivitamin Vitamin B Complex (Nephro-Vite) Tab PO SCH (08:22)
--- NOTE | 2017-03-19 08:38 | PQF GENQUE ---
Dr. Ayala, The attending physician is required to clarify conflicting documentation in the medical record. The following documentation is noted in the medical record: ------ Acute versus Chronic ? Diagnosis 1: Pulmonary Embolism: Status :Acute Documented by: Radhika Baeza Location: draft: H and P Diagnosis 2: Pulmonary Embolism Status :Chronic Documented by: Cardiology Location: Consult H and P: Assessment and Plan: Continue with Xarelto. This form is a permanent part of the medical record Clarification of your documentation is requested to better reflect the severity of illness and intensity of treatment of your patient. Indicators present [] Specify: [] [] Specify: [] [] Specify: [] [] Specify: [] Location in the medical record that reflects the above clinical findings: [] Treatment Provided: [] PHYSICIAN'S RESPONSE Based on your medical judgment of the clinical indicators outlined above please clarify the following: [] Practitioner response [] If unable to determine, please check the box, sign and date. Present On Admission (POA) Indicator: [] Present at the time of admission [] Not present at the time of admission [] Clinically Undetermined In responding to this query, please exercise your independent professional judgment. The fact that a question is asked does not imply that any particular answer is desired or expected. Thank you for your clarification on this documentation. If you have any questions please call. * Thank you, Brea Banegas RN BSN ext. #[phone] MTDD
--- NOTE | 2017-03-19 08:43 | PQF GENQUE ---
Dr. Ayala, Please clarify the type of atrial fibrillation: if known >> Chronic >> Paroxysmal >> Permanent >> Persistent >> Other (please specify type) OR>> Unable to determine OR>> Unknown Draft H and P: 1) Elevated troponin I level ;Assessment and Plan: Currently asymptomatic, hx, PE and a-fib, EKG- SR, EXT duplex negative, CXR clear, cardiology does not feel elevation due to ischemia. - Cardiology Consult ( Dr Lemus): Echo, Lopressor, ASA, rpt BMP, Stress Test after ?withdrawal - Echocardiography - Aspirin 81mg, PO, Daily - Lopressor 12.5mg, PO, Q6H - Labs in AM Status: Acute This form is a permanent part of the medical record Clarification of your documentation is requested to better reflect the severity of illness and intensity of treatment of your patient. Indicators present [] Specify: [] [] Specify: [] [] Specify: [] [] Specify: [] Location in the medical record that reflects the above clinical findings: [] Treatment Provided: [] PHYSICIAN'S RESPONSE Based on your medical judgment of the clinical indicators outlined above please clarify the following: [] Practitioner response [] If unable to determine, please check the box, sign and date. Present On Admission (POA) Indicator: [] Present at the time of admission [] Not present at the time of admission [] Clinically Undetermined In responding to this query, please exercise your independent professional judgment. The fact that a question is asked does not imply that any particular answer is desired or expected. Thank you for your clarification on this documentation. If you have any questions please call. * Thank you, Brea Banegas RN BSN ext. #[phone] MTDD
[2017-03-19] MEDS: Sodium Chloride 0.9% 1,000 ML IV SCH (11:01)
--- NOTE | 2017-03-19 16:05 | CP.PCM.PN ---
<FelishaTiffany - Last Filed: 03/19/17 16:03> Subjective - Date & Time of Evaluation Date of Evaluation: 03/19/17 Time of Evaluation: 16:03 - Subjective Subjective: Patient seen and examined at bedside with attending. 67M c/o feeling weak and worn out. He thinks it may be due in part to alcohol. Otherwise he denies headaches, visual/auditory changes, anxiety, SOB, chest pain, palpitations, N/V, diarrhea. Objective - Vital Signs/Intake and Output Vital Signs (last 24 hours): Temp Pulse Resp BP Pulse Ox 36.7 C 92 H 18 102/69 96 03/19/17 12:15 03/19/17 12:15 03/19/17 12:15 03/19/17 12:15 03/19/17 12:15 - Medications Medications: Current Medications Ascorbic Acid (Vitamin C 500 Mg Tab) 500 mg PO DAILY [facility] Last Admin: 03/19/17 08:22 Dose: 500 mg Aspirin (Aspirin Chewable) 81 mg PO DAILY [facility] Last Admin: 03/19/17 08:20 Dose: 81 mg Chlordiazepoxide (Librium) 25 mg PO Q6 [facility] Last Admin: 03/19/17 10:58 Dose: 25 mg Finasteride (Proscar) 5 mg PO DAILY [facility] Last Admin: 03/19/17 08:21 Dose: 5 mg Folic Acid (Folic Acid) 1 mg PO DAILY [facility] Last Admin: 03/19/17 08:20 Dose: 1 mg Latanoprost (Xalatan Opht) 1 drop OU HS [facility] Last Admin: 03/18/17 21:37 Dose: 1 drop Metoprolol Tartrate (Lopressor) 12.5 mg PO Q8 [facility] Last Admin: 03/19/17 08:20 Dose: 12.5 mg Naproxen (Naprosyn Tab) 250 mg PO BID PRN PRN Reason: Pain, moderate (4-7) Rivaroxaban (Xarelto) 15 mg PO BIDWM [facility] PRN Reason: Protocol Last Admin: 03/19/17 08:21 Dose: 15 mg Tamsulosin HCl (Flomax) 0.4 mg PO DAILY [facility] Last Admin: 03/19/17 08:20 Dose: 0.4 mg Thiamine HCl (Vitamin B1 Tab) 100 mg PO DAILY [facility] Last Admin: 03/19/17 08:21 Dose: 100 mg Vitamin B Complex/Vit C/Folic Acid (Nephro-Teja) 1 tab PO DAILY [facility] Last Admin: 03/19/17 08:22 Dose: 1 tab - Labs Labs: 03/19/17 05:30 03/19/17 05:30 PT 10.5 Seconds (9.8-13.1) 03/17/17 18:30 INR 0.9 (0.9-1.2) 03/17/17 18:30 APTT 22.1 Seconds (25.6-37.1) L 03/17/17 18:30 - Constitutional Appears: Non-toxic, No Acute Distress - Head Exam Head Exam: ATRAUMATIC, NORMAL INSPECTION - Eye Exam Eye Exam: EOMI, PERRL. absent: Nystagmus - ENT Exam ENT Exam: Mucous Membranes Moist, Normal Exam - Neck Exam Neck Exam: Full ROM, Normal Inspection - Respiratory Exam Respiratory Exam: Clear to Ausculation Bilateral, NORMAL BREATHING PATTERN. absent: Rales, Wheezes - Cardiovascular Exam Cardiovascular Exam: REGULAR RHYTHM. absent: JVD - GI/Abdominal Exam GI & Abdominal Exam: Soft, Normal Bowel Sounds. absent: Tenderness - Extremities Exam Extremities Exam: Normal Capillary Refill. absent: Pedal Edema Additional comments: NO tremor - Neurological Exam Neurological Exam: Alert, Awake, Oriented x3 - Psychiatric Exam Psychiatric exam: Normal Affect, Normal Mood - Skin Skin Exam: Normal Color, Warm Assessment and Plan (1) Elevated troponin I level Assessment & Plan: Currently asymptomatic, echo showing possible valve thickening and Blood Cx positive x1 however suspect this is contaminant. Patient would benefit from CHELO to better evaluate valve thickening. - Cardiology Consult ( Dr Lemus): Echo, Lopressor, ASA, rpt BMP, Stress Test after ?withdrawal - ID Consult: PENDING - Echocardiography: ?valve thickening, - Blood Culture x1 positive - Aspirin 81mg, PO, Daily - Lopressor 12.5mg, PO, Q6H - Labs in AM Status: Acute (2) Alcohol withdrawal Assessment & Plan: CIWA- 2, c/w Librium 25mg, PO, Q6H Status: Acute (3) DVT prophylaxis Assessment & Plan: Currently on DVT Treatment with Xarelto Status: Acute (4) History of pulmonary embolism Assessment & Plan: Continue with Xarelto. 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 Status: Acute (5) BPH (benign prostatic hyperplasia) Assessment & Plan: Stable, c/w home medication Status: Acute <Ayala,Alex K - Last Filed: 04/02/17 15:48> Objective - Vital Signs/Intake and Output Vital Signs (last 24 hours): Temp Pulse Resp BP Pulse Ox 98.3 F 83 18 124/81 95 03/24/17 12:01 03/24/17 16:39 03/24/17 12:01 03/24/17 16:39 03/24/17 12:01 - Labs Labs: 03/24/17 05:20 03/24/17 05:20 PT 12.3 Seconds (9.8-13.1) 03/22/17 04:10 INR 1.1 (0.9-1.2) 03/22/17 04:10 APTT 26.4 Seconds (25.6-37.1) 03/22/17 04:10 Assessment and Plan - Assessment and Plan (Free Text) Assessment: Patient was personally seen and examined by me in rounds with residents. Available labs and diagnostic data reviewed. Case, patient's condition and management plan discussed with residents in rounds. Agree with resident's progress note. Plan: As ordered.
--- NOTE | 2017-03-19 18:41 | CP.PCM.PN ---
Subjective - Date & Time of Evaluation Date of Evaluation: 03/19/17 Time of Evaluation: 18:36 - Subjective Subjective: ID NOTE Consult dictated followup blood cultures ordered . vancomycin ordered Objective - Vital Signs/Intake and Output Vital Signs (last 24 hours): Temp Pulse Resp BP Pulse Ox 97.8 F 101 H 18 102/68 98 03/19/17 16:51 03/19/17 17:11 03/19/17 16:51 03/19/17 17:11 03/19/17 16:51 - Medications Medications: Current Medications Ascorbic Acid (Vitamin C 500 Mg Tab) 500 mg PO DAILY [facility] Last Admin: 03/19/17 08:22 Dose: 500 mg Aspirin (Aspirin Chewable) 81 mg PO DAILY [facility] Last Admin: 03/19/17 08:20 Dose: 81 mg Chlordiazepoxide (Librium) 25 mg PO Q6 [facility] Last Admin: 03/19/17 17:11 Dose: 25 mg Finasteride (Proscar) 5 mg PO DAILY [facility] Last Admin: 03/19/17 08:21 Dose: 5 mg Folic Acid (Folic Acid) 1 mg PO DAILY [facility] Last Admin: 03/19/17 08:20 Dose: 1 mg Vancomycin HCl 1 gm/ Sodium (Chloride) 250 mls @ 166.667 mls/hr IVPB Q12 [facility] Latanoprost (Xalatan Opht) 1 drop OU HS [facility] Last Admin: 03/18/17 21:37 Dose: 1 drop Metoprolol Tartrate (Lopressor) 12.5 mg PO Q8 [facility] Last Admin: 03/19/17 17:11 Dose: 12.5 mg Naproxen (Naprosyn Tab) 250 mg PO BID PRN PRN Reason: Pain, moderate (4-7) Rivaroxaban (Xarelto) 15 mg PO BIDWM [facility] PRN Reason: Protocol Last Admin: 03/19/17 17:12 Dose: 15 mg Tamsulosin HCl (Flomax) 0.4 mg PO DAILY [facility] Last Admin: 03/19/17 08:20 Dose: 0.4 mg Thiamine HCl (Vitamin B1 Tab) 100 mg PO DAILY [facility] Last Admin: 03/19/17 08:21 Dose: 100 mg Vitamin B Complex/Vit C/Folic Acid (Nephro-Teja) 1 tab PO DAILY [facility] Last Admin: 03/19/17 08:22 Dose: 1 tab - Labs Labs: 03/19/17 05:30 03/19/17 05:30 PT 10.5 Seconds (9.8-13.1) 03/17/17 18:30 INR 0.9 (0.9-1.2) 03/17/17 18:30 APTT 22.1 Seconds (25.6-37.1) L 03/17/17 18:30
[2017-03-19] MEDS: Latanoprost 0.005% Opht SOUTION OU SCH (21:51)
--- NOTE | 2017-03-19 21:53 | CON ---
DATE: 03/19/2017 HISTORY OF PRESENT ILLNESS: The patient is a 67-year-old man admitted with weakness and unsteady gai t. He denies any visual disturbances, headaches and shortness of breath. The patient also complaini ng of weakness, but denies history of fever, chills and diarrhea. PAST MEDICAL HISTORY: Atrial fib, hypertension, benign prostatic hypertrophy, and PE and alcohol abu se. LABORATORY DATA: The patient's labs and the reason for which I am seeing him is that he has a positi ve blood culture for gram-positive cocci which has not been identified yet. The patient is not febri le, nor does he have any history of fever or chills. White count is 7.1 on admission and now is 6.6 without any antibiotic treatment. His differential is mild and shows a mild shift to the left. His bilirubin is 2.3 and liver functions are elevated likely due to the alcohol abuse. Creatinine is 0.8 and GFR is greater than 60. At present time, he is being worked up for cardiac disease. His echocardiogram shows the mitral valv e to be moderately thickened. A mitral vegetation could not be ruled out. Pending the followup bloo d cultures, may need a CHELO to rule out vegetation, but this will be determined with cardiology. For the present time, I have ordered repeat blood cultures and started the patient on vancomycin 1 gram q . 12 and we will continue pending subsequent cultures and identification of the bacteria that was cody wn and possibility of it being a contaminant should be ruled out. Jones Valerio MD cc: [phone] TT: 03/19/2017 21:53:09 Confirmation # [id number] Dictation # [id number]
--- NOTE | 2017-03-20 08:38 | PN ---
DATE: 03/20/2017 The patient seen and examined. Interim events noted. Consults noted and appreciated. Cardiology an d infectious disease followup and intervention noted and appreciated. The patient remains in [facility] care unit on telemetry monitoring. The patient feels okay. No specific complaint. No chest pa in, no shortness of breath, no symptoms of withdrawal either. PHYSICAL EXAMINATION: GENERAL: The patient is in no acute distress. VITAL SIGNS: Stable. HEART: S1, S2 normal, regular. LUNGS: Good bilateral air exchange. ABDOMEN: Soft, nontender. EXTREMITIES: No edema, no calf swelling, no tenderness, no acute ischemia. CENTRAL NERVOUS SYSTEM: Essentially unchanged. DIAGNOSTIC DATA: Available diagnostic data reviewed. Telemetry monitoring does not show significant arrhythmias. Blood culture is positive for staph in 2 sets. Repeat cultures are pending. Overall, the patient is clinically stable and slightly better. PLAN: As ordered. Alex Ayala MD cc: [id number] TT: 03/20/2017 08:37:40 Confirmation # [id number] Dictation # [id number] tn
[2017-03-20] MEDS: Multivitamin Vitamin B Complex (Nephro-Vite) Tab PO SCH (09:55)
[2017-03-20 10:32] LABS: MEAN CELL VOLUME 93.6 fl (80.0-94.0); MEAN CORPUSCULAR HEMOGLOBIN 30.8 pg (27.0-31.0); MEAN CORPUSCULAR HGB CONC 32.9 g/dL (33.0-37.0); RED CELL DISTRIBUTION WIDTH 13.5 % (11.5-14.5); WHITE BLOOD COUNT 6.6 K/uL (4.8-10.8)
[2017-03-20 10:46] LABS: ALB/GLOB RATIO 1.4 (1.0-2.1); ALKALINE PHOSPHATASE 46 U/L (38-126); ALT/SGPT 86 U/L (21-72); AST/SGOT 59 U/L (17-59); BILIRUBIN,TOTAL 2.2 mg/dl (0.2-1.3); BLOOD UREA NITROGEN 17 mg/dl (9-20); CALCIUM 8.9 mg/dL (8.4-10.2); CARBON DIOXIDE 25 mmol/L (22-30); CHLORIDE 106 mmol/L (98-107); GFR AFRICAN-AMERICAN > 60; GLUCOSE,RANDOM 156 mg/dL (75-110); MAGNESIUM 1.4 MG/DL (1.6-2.3); POTASSIUM 3.6 MMOL/L (3.6-5.0); SODIUM 140 mmol/l (132-148); TOTAL PROTEIN 6.1 G/DL (6.3-8.2)
[2017-03-20] MEDS ORDERED: Magnesium Sulfate 2 GM in Sodium Chloride 0.9% 100 ML IVPB ONE (14:07)
[2017-03-20] MEDS ORDERED: Potassium Chloride 20 mEq/15 ml LIQ UD PO ONE (14:07)
--- NOTE | 2017-03-20 14:12 | CP.PCM.PN ---
Subjective - Date & Time of Evaluation Date of Evaluation: 03/20/17 Time of Evaluation: 14:08 - Subjective Subjective: pt w/o sob or cp. feels better. bc 1 of 2 positive however likely contaminated. no abd pain. positive c diff antigen w neg toxin. Objective - Vital Signs/Intake and Output Vital Signs (last 24 hours): Temp Pulse Resp BP Pulse Ox 97.9 F 97 H 18 118/81 95 03/20/17 12:00 03/20/17 12:00 03/20/17 12:00 03/20/17 12:00 03/20/17 12:00 - Medications Medications: Current Medications Ascorbic Acid (Vitamin C 500 Mg Tab) 500 mg PO DAILY [facility] Last Admin: 03/20/17 09:57 Dose: 500 mg Aspirin (Aspirin Chewable) 81 mg PO DAILY [facility] Last Admin: 03/20/17 09:57 Dose: 81 mg Chlordiazepoxide (Librium) 25 mg PO Q6 [facility] Last Admin: 03/20/17 09:54 Dose: 25 mg Finasteride (Proscar) 5 mg PO DAILY [facility] Last Admin: 03/20/17 09:57 Dose: 5 mg Folic Acid (Folic Acid) 1 mg PO DAILY [facility] Last Admin: 03/20/17 09:57 Dose: 1 mg Vancomycin HCl 1 gm/ Sodium (Chloride) 250 mls @ 166.667 mls/hr IVPB Q12 [facility] Last Admin: 03/20/17 10:00 Dose: 166.667 mls/hr Magnesium Sulfate 2 gm/ Sodium (Chloride) 104 mls @ 104 mls/hr IVPB ONCE ONE PRN Reason: 2 GM/HR Stop: 03/20/17 15:06 Latanoprost (Xalatan Opht) 1 drop OU HS [facility] Last Admin: 03/19/17 21:51 Dose: 1 drop Metoprolol Tartrate (Lopressor) 12.5 mg PO Q8 [facility] Last Admin: 03/20/17 09:54 Dose: 12.5 mg Naproxen (Naprosyn Tab) 250 mg PO BID PRN PRN Reason: Pain, moderate (4-7) Potassium Chloride (Potassium Chloride Oral Soln) 40 meq PO ONCE ONE Stop: 03/20/17 14:08 Rivaroxaban (Xarelto) 15 mg PO BIDWM [facility] PRN Reason: Protocol Last Admin: 03/20/17 08:13 Dose: 15 mg Tamsulosin HCl (Flomax) 0.4 mg PO DAILY [facility] Last Admin: 03/20/17 09:56 Dose: 0.4 mg Thiamine HCl (Vitamin B1 Tab) 100 mg PO DAILY [facility] Last Admin: 03/20/17 09:56 Dose: 100 mg Vitamin B Complex/Vit C/Folic Acid (Nephro-Teja) 1 tab PO DAILY [facility] Last Admin: 03/20/17 09:55 Dose: 1 tab - Labs Labs: 03/20/17 09:15 03/20/17 09:15 PT 10.5 Seconds (9.8-13.1) 03/17/17 18:30 INR 0.9 (0.9-1.2) 03/17/17 18:30 APTT 22.1 Seconds (25.6-37.1) L 03/17/17 18:30 - Constitutional Appears: Well - Head Exam Head Exam: ATRAUMATIC, NORMAL INSPECTION, NORMOCEPHALIC - Eye Exam Eye Exam: EOMI, Normal appearance, PERRL Pupil Exam: NORMAL ACCOMODATION, PERRL - ENT Exam ENT Exam: Mucous Membranes Moist, Normal Exam - Neck Exam Neck Exam: Full ROM, Normal Inspection. absent: Lymphadenopathy - Respiratory Exam Respiratory Exam: Clear to Ausculation Bilateral, NORMAL BREATHING PATTERN - Cardiovascular Exam Cardiovascular Exam: REGULAR RHYTHM, Murmur - GI/Abdominal Exam GI & Abdominal Exam: Soft, Normal Bowel Sounds. absent: Tenderness - Rectal Exam Rectal Exam: Deferred - Extremities Exam Extremities Exam: Full ROM, Normal Capillary Refill. absent: Joint Swelling, Pedal Edema - Back Exam Back Exam: NORMAL INSPECTION - Neurological Exam Neurological Exam: Alert, Awake, CN II-XII Intact, Oriented x3 - Psychiatric Exam Psychiatric exam: Normal Affect - Skin Skin Exam: Normal Color Assessment and Plan (1) Alcohol withdrawal Status: Acute (2) Alcoholism /alcohol abuse Status: Acute (3) Elevated troponin Status: Acute (4) Hypertension Status: Acute (5) Pulmonary emboli Status: Chronic (6) Tachycardia Status: Acute - Assessment and Plan (Free Text) Plan: repeat cultures. if positive will jan no fever or wbc will review tte images continue tele repleated lytes 45 min total care time.
[2017-03-20] MEDS ORDERED: Magnesium Sulfate 2 gm/50 ml 2 GM/50 ML BAG IVPB ONE (14:30)
[2017-03-20] MEDS: Latanoprost 0.005% Opht SOUTION OU SCH (21:59)
[2017-03-21 07:13] LABS: MEAN CELL VOLUME 94.6 fl (80.0-94.0); MEAN CORPUSCULAR HEMOGLOBIN 31.2 pg (27.0-31.0); MEAN CORPUSCULAR HGB CONC 32.9 g/dL (33.0-37.0); RED CELL DISTRIBUTION WIDTH 13.5 % (11.5-14.5); WHITE BLOOD COUNT 5.8 K/uL (4.8-10.8)
[2017-03-21 07:21] LABS: ALB/GLOB RATIO 1.2 (1.0-2.1); ALKALINE PHOSPHATASE 43 U/L (38-126); ALT/SGPT 80 U/L (21-72); AST/SGOT 58 U/L (17-59); BILIRUBIN,TOTAL 1.5 mg/dl (0.2-1.3); BLOOD UREA NITROGEN 19 mg/dl (9-20); CALCIUM 8.3 mg/dL (8.4-10.2); CARBON DIOXIDE 28 mmol/L (22-30); CHLORIDE 105 mmol/L (98-107); GFR AFRICAN-AMERICAN > 60; GLUCOSE,RANDOM 97 mg/dL (75-110); POTASSIUM 3.9 MMOL/L (3.6-5.0); SODIUM 139 mmol/l (132-148); TOTAL PROTEIN 5.8 G/DL (6.3-8.2)
--- NOTE | 2017-03-21 08:12 | PN ---
DATE: 03/21/2017 The patient seen and examined. Interim events noted. Consults noted, appreciated. Cardiology follo wup and intervention noted and appreciated. The patient remains in progressive care unit with teleme try monitoring in isolation. The patient ____ arousable, feels okay. Denies any specific complaint of chest pain or shortness of breath. Also denies any withdrawal symptoms. Complains of generalized weakness. No specific issue reported by nursing staff. The patient had bowel movement through the morning without any blood. PHYSICAL EXAMINATION: GENERAL: The patient is in no acute distress. VITAL SIGNS: Stable. HEART: S1, S2 normal, regular. LUNGS: Good bilateral air exchange. ABDOMEN: Soft, nontender. EXTREMITIES: No edema, no calf swelling, no tenderness. No acute ischemia. CENTRAL NERVOUS SYSTEM: Essentially unchanged. DIAGNOSTIC DATA: Available diagnostic data reviewed. Repeat blood culture remains negative. Teleme try monitoring does not reveal significant arrhythmia. Overall, patient's general condition is slowly improving. The patient does have ____. Sensitivity i s still pending. Also tentatively scheduled for ____ of the endocarditis. PLAN: As ordered. Case and plan discussed with patient. Alex Ayala MD cc: [id number] TT: 03/21/2017 08:11:58 Confirmation # [id number] Dictation # [id number]
[2017-03-21] MEDS: Multivitamin Vitamin B Complex (Nephro-Vite) Tab PO SCH (09:04)
--- NOTE | 2017-03-21 09:51 | CP.PCM.CON ---
History of Present Illness - History of Present Illness History of Present Illness: Asked by Dr. Ayala for a GI consultation on this patient. 67 year old male with history of BPH, atrial fibrillation on xarelto, ETOH abuse who presents to hospital with complaint of unsteady gait in setting of acute ETOH intoxication. GI called for evaluation of elevated LFTs. He admits to drinking regularly, recently more often due to social stressors in life. He denies prior history of liver disease. He is oriented to person and place but not to time. He denies abdominal pain, nausea, vomiting, diarrhea, fever/chills, weight loss, jaundice, pruritis, or change in bowel habits. No prior endoscopic evaluation. Social history: non-smoker, +ETOH abuse Family history: mother (lung cancer) Review of Systems - Review of Systems Review of Systems: - All other comprehensive 12 point review of systems performed, negative - Constitutional Constitutional: Malaise - Cardiovascular Cardiovascular: absent: Acrocyanosis, Chest Pain, Chest Pain at Rest, Chest Pain with Activity, Claudication, Diaphoresis, Dyspnea, Dyspnea on Exertion, Edema, Irregular Heart Rhythm, Pain Radiating to Arm/Neck/Jaw, Leg Edema, Leg Ulcers, Lightheadedness, Orthopnea, Palpitations, Paroxysmal Nocturnal Dyspnea, Pedal Edema, Radiating Pain, Rapid Heart Rate, Slow Heart Rate, Syncope, Other - Respiratory Respiratory: absent: Cough, Dyspnea, Hemoptysis, Dyspnea on Exertion, Wheezing, Snoring, Stridor, Pain on Inspiration, Chest Congestion, Excessive Mucous Production, Change in Mucous Color, Pain with Coughing, Other - Gastrointestinal Gastrointestinal: absent: Abdominal Pain, Belching, Bloating, Change in Bowel Habits, Change in Stool Character, Coffee Ground Emesis, Constipation, Cramping , Diarrhea, Dyspepsia, Dysphagia, Early Satiety, Excessive Flatus, Fecal Incontinence, Heartburn, Hematemesis, Hematochezia, Loose Stools, Melena, Nausea , Odynophagia, Temesmus, Vomiting, Other - Musculoskeletal Musculoskeletal: absent: Abnormal Gait, Arthralgias, Atrophy, Back Pain, Deformity, Joint Swelling, Limited Range of Motion, Loss of Height, Muscle Cramps, Muscle Weakness, Myalgias, Neck Pain, Numbness, Radiating Pain into Limb , Stiffness, Tingling, Other - Neurological Neurological: Disequilibrium Past Patient History - Tetanus Immunizations Tetanus Immunization: Unknown - Past Medical History & Family History Past Medical History?: Yes - Past Social History Smoking Status: Never Smoked - CARDIAC Hx Atrial Fibrillation: Yes Hx Hypertension: Yes - PULMONARY Hx Pulmonary Embolism: Yes - NEUROLOGICAL Hx Neurological Disorder: No - HEENT Hx HEENT Problems: Yes Hx Glaucoma: Yes - RENAL Hx Chronic Kidney Disease: No - ENDOCRINE/METABOLIC Hx Endocrine Disorders: No - HEMATOLOGICAL/ONCOLOGICAL Hx AIDS: No Hx Blood Transfusions: No Hx Human Immunodeficiency Virus (HIV): No - INTEGUMENTARY Hx Dermatological Problems: No - MUSCULOSKELETAL/RHEUMATOLOGICAL Hx Falls: Yes - GASTROINTESTINAL Hx Gastrointestinal Disorders: No - GENITOURINARY/GYNECOLOGICAL Hx Genitourinary Disorders: Yes Hx Prostate Problems: Yes (BPH) - PSYCHIATRIC Hx Substance Use: Yes (quit 12 years ago) - SURGICAL HISTORY Hx Surgeries: Yes Hx Tonsillectomy: Yes - ANESTHESIA Hx Anesthesia: Yes Hx Anesthesia Reactions: No Hx Malignant Hyperthermia: No Meds Allergies/Adverse Reactions: Allergies Allergy/AdvReac Type Severity Reaction Status Date / Time PCN Allergy RASH Uncoded 03/17/17 19:39 - Medications Medications: Current Medications Ascorbic Acid (Vitamin C 500 Mg Tab) 500 mg PO DAILY [facility] Last Admin: 03/21/17 09:03 Dose: 500 mg Aspirin (Aspirin Chewable) 81 mg PO DAILY [facility] Last Admin: 03/21/17 09:03 Dose: 81 mg Chlordiazepoxide (Librium) 25 mg PO Q6 [facility] Last Admin: 03/21/17 04:14 Dose: 25 mg Finasteride (Proscar) 5 mg PO DAILY [facility] Last Admin: 03/21/17 09:03 Dose: 5 mg Folic Acid (Folic Acid) 1 mg PO DAILY [facility] Last Admin: 03/21/17 09:03 Dose: 1 mg Vancomycin HCl 1 gm/ Sodium (Chloride) 250 mls @ 166.667 mls/hr IVPB Q12 [facility] Last Admin: 03/21/17 09:05 Dose: 166.667 mls/hr Latanoprost (Xalatan Opht) 1 drop OU HS [facility] Last Admin: 03/20/17 21:59 Dose: 1 drop Metoprolol Tartrate (Lopressor) 12.5 mg PO Q8 [facility] Last Admin: 03/21/17 09:02 Dose: 12.5 mg Naproxen (Naprosyn Tab) 250 mg PO BID PRN PRN Reason: Pain, moderate (4-7) Rivaroxaban (Xarelto) 15 mg PO BIDWM [facility] PRN Reason: Protocol Last Admin: 03/21/17 09:04 Dose: 15 mg Tamsulosin HCl (Flomax) 0.4 mg PO DAILY [facility] Last Admin: 03/21/17 09:03 Dose: 0.4 mg Thiamine HCl (Vitamin B1 Tab) 100 mg PO DAILY [facility] Last Admin: 03/21/17 09:03 Dose: 100 mg Vitamin B Complex/Vit C/Folic Acid (Nephro-Teja) 1 tab PO DAILY [facility] Last Admin: 03/21/17 09:04 Dose: 1 tab Physical Exam - Constitutional Appears: Non-toxic, No Acute Distress - Head Exam Head Exam: NORMAL INSPECTION - Eye Exam Eye Exam: EOMI, Normal appearance - ENT Exam ENT Exam: Mucous Membranes Moist - Respiratory Exam Respiratory Exam: Clear to Auscultation Bilateral - Cardiovascular Exam Cardiovascular Exam: REGULAR RHYTHM, +S1, +S2 - GI/Abdominal Exam GI & Abdominal Exam: Normal Bowel Sounds, Soft Additional comments: non tender to palpation in four quadrants no palpable hepato/splenomegaly - Extremities Exam Extremities exam: Positive for: normal inspection - Neurological Exam Neurological exam: Alert, CN II-XII Intact, Reflexes Normal - Psychiatric Exam Psychiatric exam: Normal Affect, Normal Mood - Skin Skin Exam: Dry, Intact, Normal Color, Warm Results - Vital Signs Recent Vital Signs: Last Vital Signs Temp 97.5 F L 03/21/17 08:55 Pulse 88 03/21/17 09:02 Resp 20 03/21/17 08:55 BP 120/78 03/21/17 09:02 Pulse Ox 95 03/21/17 08:55 - Labs Result Diagrams: 03/21/17 05:30 03/21/17 05:30 Labs: Laboratory Results - last 24 hr 03/20/17 03/20/17 03/21/17 09:15 09:15 05:30 WBC 6.6 5.8 RBC 4.38 L 4.01 L Hgb 13.5 12.5 Hct 41.0 38.0 MCV 93.6 94.6 H MCH 30.8 31.2 H MCHC 32.9 L 32.9 L RDW 13.5 13.5 Plt Count 110 L 115 L Sodium 140 Potassium 3.6 Chloride 106 Carbon Dioxide 25 Anion Gap 13 BUN 17 Creatinine 0.7 L Est GFR ( Amer) > 60 Est GFR (Non-Af Amer) > 60 Random Glucose 156 H Calcium 8.9 Magnesium 1.4 L Total Bilirubin 2.2 H AST 59 D ALT 86 H D Alkaline Phosphatase 46 Total Creatine Kinase 107 CK-MB (Mass) 0.40 Total Protein 6.1 L Albumin 3.5 Globulin 2.6 Albumin/Globulin Ratio 1.4 03/21/17 05:30 WBC RBC Hgb Hct MCV MCH MCHC RDW Plt Count Sodium 139 Potassium 3.9 Chloride 105 Carbon Dioxide 28 Anion Gap 10 BUN 19 Creatinine 0.9 Est GFR ( Amer) > 60 Est GFR (Non-Af Amer) > 60 Random Glucose 97 Calcium 8.3 L Magnesium Total Bilirubin 1.5 H AST 58 ALT 80 H Alkaline Phosphatase 43 Total Creatine Kinase CK-MB (Mass) Total Protein 5.8 L Albumin 3.2 L Globulin 2.6 Albumin/Globulin Ratio 1.2 Assessment & Plan - Assessment and Plan (Free Text) Assessment: BPH Transaminitis in setting of ETOH abuse - acute ETOH hepatitis, discriminant function of 4 Bacteremia - gram + cocci in two culture bottles, ?mitral valve vegitation Atrial fibrillation on xarelto Abdominal US from June 2016 shows no evidence of cirrhosis Plan: - Diet as tolerated - ETOH withdrawal protocol as per medical team - LFTs stable, continue to monitor - Obtain hepatitis panel and abdominal US for further evaluation. Prior sonogram from 2015 shows no cirrhosis, no coagulopathy present currently. - Continue with antibiotic therapy, repeat blood culture shows no growth to date - follow up ID recommendations - ETOH cessation counselling - Patient would benefit from subsequent outpatient follow up for colonoscopy screening, office contact information provided to patient. No ongoing GI issues , will sign off case. Please reconsult as necessary, thank you. Case discussed with Dr. Ayala.
--- NOTE | 2017-03-21 16:40 | CP.PCM.PN ---
Subjective - Date & Time of Evaluation Date of Evaluation: 03/21/17 Time of Evaluation: 12:00 - Subjective Subjective: PT W/O COMPLAINTS. NO FEVER, CHILLS, SOB, CP, PALP. NO NEW NEURO SIGNS OR SX. TELE NO SUSTAINED ARRYTHMIAS. ECHO IMAGES REVIEWED AND ARE LIMITED FOR RIGHT SIDED VALVE VISUALIZATION. THERE DOES APPEAR TO BE MODERATE MAC WITHOUT EVIDENCE OF MOBILE VEGETATIONS ON MV. PTS WBC DECREASED. Objective - Vital Signs/Intake and Output Vital Signs (last 24 hours): Temp Pulse Resp BP Pulse Ox 97.3 F L 76 20 112/75 97 03/21/17 15:42 03/21/17 15:42 03/21/17 15:42 03/21/17 15:42 03/21/17 15:42 Intake and Output: 03/21/17 03/21/17 06:59 18:59 Intake Total 400 Balance 400 - Medications Medications: Current Medications Ascorbic Acid (Vitamin C 500 Mg Tab) 500 mg PO DAILY [facility] Last Admin: 03/21/17 09:03 Dose: 500 mg Aspirin (Aspirin Chewable) 81 mg PO DAILY [facility] Last Admin: 03/21/17 09:03 Dose: 81 mg Chlordiazepoxide (Librium) 25 mg PO Q6 PRN PRN Reason: tremor Finasteride (Proscar) 5 mg PO DAILY [facility] Last Admin: 03/21/17 09:03 Dose: 5 mg Folic Acid (Folic Acid) 1 mg PO DAILY [facility] Last Admin: 03/21/17 09:03 Dose: 1 mg Vancomycin HCl 1 gm/ Sodium (Chloride) 250 mls @ 166.667 mls/hr IVPB Q12 [facility] Last Admin: 03/21/17 09:05 Dose: 166.667 mls/hr Latanoprost (Xalatan Opht) 1 drop OU HS [facility] Last Admin: 03/20/17 21:59 Dose: 1 drop Metoprolol Tartrate (Lopressor) 12.5 mg PO Q8 [facility] Last Admin: 03/21/17 09:02 Dose: 12.5 mg Naproxen (Naprosyn Tab) 250 mg PO BID PRN PRN Reason: Pain, moderate (4-7) Rivaroxaban (Xarelto) 15 mg PO BIDWM [facility] PRN Reason: Protocol Last Admin: 03/21/17 09:04 Dose: 15 mg Tamsulosin HCl (Flomax) 0.4 mg PO DAILY [facility] Last Admin: 03/21/17 09:03 Dose: 0.4 mg Thiamine HCl (Vitamin B1 Tab) 100 mg PO DAILY [facility] Last Admin: 03/21/17 09:03 Dose: 100 mg Vitamin B Complex/Vit C/Folic Acid (Nephro-Teja) 1 tab PO DAILY [facility] Last Admin: 03/21/17 09:04 Dose: 1 tab - Labs Labs: 03/21/17 05:30 03/21/17 05:30 PT 10.5 Seconds (9.8-13.1) 03/17/17 18:30 INR 0.9 (0.9-1.2) 03/17/17 18:30 APTT 22.1 Seconds (25.6-37.1) L 03/17/17 18:30 - Constitutional Appears: Well - Head Exam Head Exam: ATRAUMATIC, NORMAL INSPECTION, NORMOCEPHALIC - Eye Exam Eye Exam: EOMI, Normal appearance, PERRL Pupil Exam: NORMAL ACCOMODATION, PERRL - ENT Exam ENT Exam: Mucous Membranes Moist, Normal Exam - Neck Exam Neck Exam: Full ROM, Normal Inspection. absent: Lymphadenopathy - Respiratory Exam Respiratory Exam: Clear to Ausculation Bilateral, NORMAL BREATHING PATTERN - Cardiovascular Exam Cardiovascular Exam: REGULAR RHYTHM, +S1, +S2, Murmur - GI/Abdominal Exam GI & Abdominal Exam: Soft, Normal Bowel Sounds. absent: Tenderness - Extremities Exam Extremities Exam: Full ROM, Normal Capillary Refill, Normal Inspection. absent : Joint Swelling, Pedal Edema - Back Exam Back Exam: NORMAL INSPECTION - Neurological Exam Neurological Exam: Alert, Awake, CN II-XII Intact, Oriented x3 - Psychiatric Exam Psychiatric exam: Normal Affect, Normal Mood - Skin Skin Exam: Dry, Intact, Normal Color, Warm Assessment and Plan (1) Alcohol withdrawal Status: Acute (2) Alcoholism /alcohol abuse Status: Acute (3) Elevated troponin Status: Acute (4) Hypertension Status: Acute (5) Pulmonary emboli Status: Chronic (6) Tachycardia Status: Acute - Assessment and Plan (Free Text) Plan: GIVEN HX OF MULTIFOCAL PE, FATIGUE, POSITIVE BC'S (WHICH MAY BE CONTAMINATED), AND LIMITED TTE, WILL PLAN FOR CHELO IN AM. ANTICOAGULATION HELD. NPO P MN. EXPLAINED PROCEDURE TO PT AND REVIEWED RISKS BENEFITS AND ALTERNATIVES. D/W STAFF. REPLEAT LYTES. CONTINUE TELE. 45 MIN TOTAL CARE TIME.
[2017-03-21] MEDS ORDERED: Potassium Chloride 20 mEq/15 ml LIQ UD PO ONE (16:42)
--- NOTE | 2017-03-21 18:49 | US ---
HISTORY: elevated LFTs COMPARISON: None. TECHNIQUE: Sonographic evaluation of the abdomen. FINDINGS: LIVER: Liver is enlarged measuring approximately 19 cm in CC dimension. . Liver demonstrates smooth contour though increased echogenicity of the liver parenchyma. . Findings most likely represent the sequela of the fatty infiltration however other infiltrative hepatocellular disease process not excluded. . There is a vague inhomogeneous area within the right lobe liver of uncertain etiology. Followup nonemergent CT scan of the abdomen pelvis recommended for further evaluation. GALLBLADDER: Gallbladder is physiologically distended. No evidence of intraluminal gallbladder calculi. No evidence of pericholecystic fluid collections or sonographic Gramajo sign COMMON BILE DUCT: Measures 2.3 mm. No stones. No dilatation. PANCREAS: Unremarkable as visualized. No mass. No ductal dilatation. RIGHT KIDNEY: Measures approximately 11.0 x 4.6 x 6.6cm. Normal echogenicity. No calculus, mass, or hydronephrosis. LEFT KIDNEY: Measures approximately 10.8 x 6.0 x 4.0cm. Normal echogenicity. No calculus, mass, or hydronephrosis. SPLEEN: Normal in size and contour. No mass. AORTA: No aneurysmal dilatation. IVC: Unremarkable. OTHER FINDINGS: Right-sided pleural effusion IMPRESSION: Fatty hepatic infiltration. Questionable area of fatty sparing right lobe liver ; follow-up CT scan of the abdomen pelvis some could be performed for further evaluation. Right-sided pleural effusion.
[2017-03-21] MEDS: Latanoprost 0.005% Opht SOUTION OU SCH (22:00)
[2017-03-22 05:04] LABS: BASO # 0.1 K/uL (0.0-0.2); BASO % 2.8 % (0.0-2.0); EOS # 0.2 K/uL (0.0-0.7); EOS % 4.5 % (0.0-4.0); HEMATOCRIT 38.6 % (35.0-51.0); LYMPH # 0.6 K/uL (1.0-4.3); LYMPH % 11.8 % (20.0-40.0); MEAN CELL VOLUME 94.9 fl (80.0-94.0); MEAN CORPUSCULAR HGB CONC 32.7 g/dL (33.0-37.0); MEAN PLATELET VOLUME 9.7 fl (7.2-11.7); MONO # 0.9 K/uL (0.0-0.8); MONO % 18.4 % (0.0-10.0); NEUT # 3.1 K/uL (1.8-7.0); NEUT % 62.5 % (50.0-75.0); RED CELL DISTRIBUTION WIDTH 13.2 % (11.5-14.5)
[2017-03-22 05:13] LABS: ALB/GLOB RATIO 1.2 (1.0-2.1); ALKALINE PHOSPHATASE 44 U/L (38-126); ALT/SGPT 90 U/L (21-72); AST/SGOT 71 U/L (17-59); BILIRUBIN,TOTAL 1.1 mg/dl (0.2-1.3); BLOOD UREA NITROGEN 17 mg/dl (9-20); CALCIUM 8.8 mg/dL (8.4-10.2); CARBON DIOXIDE 29 mmol/L (22-30); CHLORIDE 105 mmol/L (98-107); GFR AFRICAN-AMERICAN > 60; GLUCOSE,RANDOM 94 mg/dL (75-110); MAGNESIUM 1.6 MG/DL (1.6-2.3); POTASSIUM 4.1 MMOL/L (3.6-5.0); SODIUM 139 mmol/l (132-148); TOTAL PROTEIN 5.9 G/DL (6.3-8.2)
[2017-03-22 05:34] LABS: PARTIAL THROMBOPLASTIN TIME 26.4 Seconds (25.6-37.1)
[2017-03-22] MEDS: Multivitamin Vitamin B Complex (Nephro-Vite) Tab PO SCH (08:45)
--- NOTE | 2017-03-22 08:59 | PN ---
DATE: 03/22/2017 The patient seen and examined. Interim events noted. Consults noted, appreciated. The patient smith ins in progressive care unit on telemetry monitoring. The patient feels okay. No specific complaint s. complains of generalized weakness. PHYSICAL EXAMINATION: GENERAL: The patient is in no acute distress. VITAL SIGNS: Stable. HEART: S1, S2 normal, regular. LUNGS: Good bilateral air entry. ABDOMEN: Soft, nontender. EXTREMITIES: No edema, no calf swelling, no tenderness, no acute ischemia. CENTRAL NERVOUS SYSTEM: Essentially unchanged. DIAGNOSTIC DATA: Available reviewed. Telemetry monitoring does not reveal significant arrhythmia. Overall, patient's general medical condition is stable and improving. PLAN: As ordered. Alex Ayala MD cc: [id number] TT: 03/22/2017 08:59:02 Confirmation # [id number] Dictation # [id number]
--- NOTE | 2017-03-22 17:43 | CP.PCM.PN ---
Subjective - Date & Time of Evaluation Date of Evaluation: 03/22/17 Time of Evaluation: 17:40 - Subjective Subjective: I D NOTE AFEBRIL;E ALL F/U BLOOD CULTURES ARE NEGATIVE INITIAL CULTURE WAS COAGULASE NEG STAPHYLOCOCCUS MOST LIKELY A COTAMINENT BUT CONSIDERING HIS PHYSICAL WOULD RX C IV VANCOMYCIN X 7 TO 10 DAYS UNLESS CHELO SHOWS VEGETATION Objective - Vital Signs/Intake and Output Vital Signs (last 24 hours): Temp Pulse Resp BP Pulse Ox 99.4 F 95 H 20 122/75 97 03/22/17 15:44 03/22/17 17:08 03/22/17 15:44 03/22/17 17:08 03/22/17 15:44 Intake and Output: 03/22/17 03/22/17 06:59 18:59 Intake Total 350 Output Total 600 Balance -250 - Medications Medications: Current Medications Ascorbic Acid (Vitamin C 500 Mg Tab) 500 mg PO DAILY [facility] Last Admin: 03/22/17 08:45 Dose: 500 mg Aspirin (Aspirin Chewable) 81 mg PO DAILY [facility] Last Admin: 03/22/17 09:50 Dose: Not Given Chlordiazepoxide (Librium) 25 mg PO Q6 PRN PRN Reason: tremor Last Admin: 03/21/17 18:09 Dose: 25 mg Finasteride (Proscar) 5 mg PO DAILY [facility] Last Admin: 03/22/17 09:51 Dose: Not Given Folic Acid (Folic Acid) 1 mg PO DAILY [facility] Last Admin: 03/22/17 09:50 Dose: Not Given Vancomycin HCl 1 gm/ Sodium (Chloride) 250 mls @ 166.667 mls/hr IVPB Q12 [facility] Last Admin: 03/22/17 09:44 Dose: 166.667 mls/hr Latanoprost (Xalatan Opht) 1 drop OU HS [facility] Last Admin: 03/21/17 22:00 Dose: 1 drop Metoprolol Tartrate (Lopressor) 12.5 mg PO Q8 [facility] Last Admin: 03/22/17 17:08 Dose: 12.5 mg Naproxen (Naprosyn Tab) 250 mg PO BID PRN PRN Reason: Pain, moderate (4-7) Tamsulosin HCl (Flomax) 0.4 mg PO DAILY [facility] Last Admin: 03/22/17 09:50 Dose: Not Given Thiamine HCl (Vitamin B1 Tab) 100 mg PO DAILY [facility] Last Admin: 03/22/17 09:51 Dose: Not Given Vitamin B Complex/Vit C/Folic Acid (Nephro-Teja) 1 tab PO DAILY [facility] Last Admin: 03/22/17 08:45 Dose: Not Given - Labs Labs: 03/22/17 04:10 03/22/17 04:10 PT 12.3 Seconds (9.8-13.1) 03/22/17 04:10 INR 1.1 (0.9-1.2) 03/22/17 04:10 APTT 26.4 Seconds (25.6-37.1) 03/22/17 04:10
[2017-03-22] MEDS: Latanoprost 0.005% Opht SOUTION OU SCH (21:50)
[2017-03-23 07:52] LABS: HEMATOCRIT 39.1 % (35.0-51.0); MEAN CORPUSCULAR HEMOGLOBIN 31.1 pg (27.0-31.0); MEAN CORPUSCULAR HGB CONC 33.4 g/dL (33.0-37.0); RED CELL DISTRIBUTION WIDTH 13.4 % (11.5-14.5); WHITE BLOOD COUNT 4.3 K/uL (4.8-10.8)
[2017-03-23 08:06] LABS: ALB/GLOB RATIO 1.3 (1.0-2.1); ALKALINE PHOSPHATASE 45 U/L (38-126); ALT/SGPT 87 U/L (21-72); AST/SGOT 58 U/L (17-59); BLOOD UREA NITROGEN 22 mg/dl (9-20); CALCIUM 9.2 mg/dL (8.4-10.2); CARBON DIOXIDE 27 mmol/L (22-30); CHLORIDE 103 mmol/L (98-107); GFR AFRICAN-AMERICAN > 60; GLUCOSE,RANDOM 99 mg/dL (75-110); POTASSIUM 4.1 MMOL/L (3.6-5.0); SODIUM 138 mmol/l (132-148); TOTAL PROTEIN 6.1 G/DL (6.3-8.2)
[2017-03-23] MEDS: Multivitamin Vitamin B Complex (Nephro-Vite) Tab PO SCH (09:01)
[2017-03-23] MEDS ORDERED: Propofol 10 mg/ml Inj (20 ML) ONE (13:53)
[2017-03-23] MEDS ORDERED: Sodium Chloride 0.9% 500 ML IV ONE (14:50)
--- NOTE | 2017-03-23 15:02 | CP.PCM.PN ---
Subjective - Date & Time of Evaluation Date of Evaluation: 03/23/17 Time of Evaluation: 15:02 - Subjective Subjective: No cp or sob. No dizziness or LH. Still has mild tremors. Objective - Vital Signs/Intake and Output Vital Signs (last 24 hours): Temp Pulse Resp BP Pulse Ox 98 F 88 14 109/75 100 03/23/17 14:13 03/23/17 14:13 03/23/17 14:13 03/23/17 14:13 03/23/17 14:13 Intake and Output: 03/23/17 03/23/17 06:59 18:59 Intake Total 350 250 Output Total 1400 700 Balance -1050 -450 - Medications Medications: Current Medications Ascorbic Acid (Vitamin C 500 Mg Tab) 500 mg PO DAILY [facility] Last Admin: 03/23/17 09:02 Dose: Not Given Aspirin (Aspirin Chewable) 81 mg PO DAILY [facility] Last Admin: 03/23/17 09:01 Dose: Not Given Chlordiazepoxide (Librium) 25 mg PO Q6 PRN PRN Reason: tremor Last Admin: 03/21/17 18:09 Dose: 25 mg Finasteride (Proscar) 5 mg PO DAILY [facility] Last Admin: 03/23/17 09:02 Dose: Not Given Folic Acid (Folic Acid) 1 mg PO DAILY [facility] Last Admin: 03/23/17 09:01 Dose: Not Given Vancomycin HCl 1 gm/ Sodium (Chloride) 250 mls @ 166.667 mls/hr IVPB Q12 [facility] Last Admin: 03/23/17 09:03 Dose: 166.667 mls/hr Latanoprost (Xalatan Opht) 1 drop OU HS [facility] Last Admin: 03/22/17 21:50 Dose: 1 drop Metoprolol Tartrate (Lopressor) 12.5 mg PO Q8 [facility] Last Admin: 03/23/17 09:01 Dose: Not Given Naproxen (Naprosyn Tab) 250 mg PO BID PRN PRN Reason: Pain, moderate (4-7) Tamsulosin HCl (Flomax) 0.4 mg PO DAILY [facility] Last Admin: 03/23/17 09:01 Dose: Not Given Thiamine HCl (Vitamin B1 Tab) 100 mg PO DAILY [facility] Last Admin: 03/23/17 09:02 Dose: Not Given Vitamin B Complex/Vit C/Folic Acid (Nephro-Teja) 1 tab PO DAILY [facility] Last Admin: 03/23/17 09:01 Dose: Not Given - Labs Labs: 03/23/17 07:40 03/23/17 07:40 PT 12.3 Seconds (9.8-13.1) 03/22/17 04:10 INR 1.1 (0.9-1.2) 03/22/17 04:10 APTT 26.4 Seconds (25.6-37.1) 03/22/17 04:10 - Constitutional Appears: Well - Head Exam Head Exam: ATRAUMATIC, NORMAL INSPECTION, NORMOCEPHALIC - Eye Exam Eye Exam: EOMI, Normal appearance, PERRL Pupil Exam: NORMAL ACCOMODATION, PERRL - ENT Exam ENT Exam: Mucous Membranes Moist, Normal Exam - Neck Exam Neck Exam: Full ROM, Normal Inspection. absent: Lymphadenopathy - Respiratory Exam Respiratory Exam: Clear to Ausculation Bilateral, NORMAL BREATHING PATTERN - Cardiovascular Exam Cardiovascular Exam: REGULAR RHYTHM, +S1, +S2, Murmur - GI/Abdominal Exam GI & Abdominal Exam: Soft, Normal Bowel Sounds. absent: Tenderness - Rectal Exam Rectal Exam: Deferred - Extremities Exam Extremities Exam: Full ROM, Normal Capillary Refill, Normal Inspection. absent : Joint Swelling, Pedal Edema - Back Exam Back Exam: NORMAL INSPECTION - Neurological Exam Neurological Exam: Alert, Awake, CN II-XII Intact, Oriented x3 - Psychiatric Exam Psychiatric exam: Normal Affect, Normal Mood - Skin Skin Exam: Dry, Intact, Normal Color, Warm Assessment and Plan (1) Alcohol withdrawal Status: Acute (2) Alcoholism /alcohol abuse Status: Acute (3) Elevated troponin Status: Resolved (4) Hypertension Status: Acute (5) Pulmonary emboli Status: Chronic (6) Tachycardia Status: Resolved - Assessment and Plan (Free Text) Plan: jan performed - no veg, no thrombos, nml lvef, mild mr, mild tr. May wish to consider re-evaluating v/q scan if filling defects are absent and pt does not have a hypercoag state then may stop anticoag. current le dopplers are negative cont current meds. bp is stable. 85 min total care time
--- NOTE | 2017-03-23 15:26 | CP.PCM.PN ---
Subjective - Date & Time of Evaluation Date of Evaluation: 03/23/17 Time of Evaluation: 07:00 - Subjective Subjective: The patient seen and examined. Interim events noted. Consults noted, appreciated. The patient remains in progressive care unit on telemetry monitoring. The patient feels okay. No specific complaints. complains of generalized weakness. PHYSICAL EXAMINATION: GENERAL: The patient is in no acute distress. VITAL SIGNS: Stable. HEART: S1, S2 normal, regular. LUNGS: Good bilateral air entry. ABDOMEN: Soft, nontender. EXTREMITIES: No edema, no calf swelling, no tenderness, no acute ischemia. CENTRAL NERVOUS SYSTEM: Essentially unchanged. DIAGNOSTIC DATA: Available reviewed. Telemetry monitoring does not reveal significant arrhythmia. Pt is for CHELO Stable and improving Plan: As ordered. Case and plan d/w pt Objective - Vital Signs/Intake and Output Vital Signs (last 24 hours): Temp Pulse Resp BP Pulse Ox 98 F 88 14 109/75 100 03/23/17 14:13 03/23/17 14:13 03/23/17 14:13 03/23/17 14:13 03/23/17 14:13 Intake and Output: 03/23/17 03/23/17 06:59 18:59 Intake Total 350 250 Output Total 1400 700 Balance -1050 -450 - Medications Medications: Current Medications Ascorbic Acid (Vitamin C 500 Mg Tab) 500 mg PO DAILY [facility] Last Admin: 03/23/17 09:02 Dose: Not Given Aspirin (Aspirin Chewable) 81 mg PO DAILY [facility] Last Admin: 03/23/17 09:01 Dose: Not Given Chlordiazepoxide (Librium) 25 mg PO Q6 PRN PRN Reason: tremor Last Admin: 03/21/17 18:09 Dose: 25 mg Finasteride (Proscar) 5 mg PO DAILY [facility] Last Admin: 03/23/17 09:02 Dose: Not Given Folic Acid (Folic Acid) 1 mg PO DAILY [facility] Last Admin: 03/23/17 09:01 Dose: Not Given Vancomycin HCl 1 gm/ Sodium (Chloride) 250 mls @ 166.667 mls/hr IVPB Q12 [facility] Last Admin: 03/23/17 09:03 Dose: 166.667 mls/hr Latanoprost (Xalatan Opht) 1 drop OU HS [facility] Last Admin: 03/22/17 21:50 Dose: 1 drop Metoprolol Tartrate (Lopressor) 12.5 mg PO Q8 [facility] Last Admin: 03/23/17 09:01 Dose: Not Given Naproxen (Naprosyn Tab) 250 mg PO BID PRN PRN Reason: Pain, moderate (4-7) Tamsulosin HCl (Flomax) 0.4 mg PO DAILY [facility] Last Admin: 03/23/17 09:01 Dose: Not Given Thiamine HCl (Vitamin B1 Tab) 100 mg PO DAILY [facility] Last Admin: 03/23/17 09:02 Dose: Not Given Vitamin B Complex/Vit C/Folic Acid (Nephro-Teja) 1 tab PO DAILY [facility] Last Admin: 03/23/17 09:01 Dose: Not Given - Labs Labs: 03/23/17 07:40 03/23/17 07:40 PT 12.3 Seconds (9.8-13.1) 03/22/17 04:10 INR 1.1 (0.9-1.2) 03/22/17 04:10 APTT 26.4 Seconds (25.6-37.1) 03/22/17 04:10 Assessment and Plan - Assessment and Plan (Free Text) Assessment: Patient was personally seen and examined by me in rounds with residents. Available labs and diagnostic data reviewed. Case, patient's condition and management plan discussed with residents in rounds. Agree with resident's progress note. Plan: As ordered.
[2017-03-23] MEDS: Latanoprost 0.005% Opht SOUTION OU SCH (22:08)
[2017-03-24 06:44] LABS: HEMATOCRIT 39.2 % (35.0-51.0); MEAN CELL VOLUME 93.5 fl (80.0-94.0); MEAN CORPUSCULAR HGB CONC 33.2 g/dL (33.0-37.0); RED CELL DISTRIBUTION WIDTH 13.5 % (11.5-14.5); WHITE BLOOD COUNT 4.3 K/uL (4.8-10.8)
[2017-03-24 07:04] LABS: ALB/GLOB RATIO 1.2 (1.0-2.1); ALKALINE PHOSPHATASE 48 U/L (38-126); ALT/SGPT 88 U/L (21-72); AST/SGOT 58 U/L (17-59); BILIRUBIN,TOTAL 0.7 mg/dl (0.2-1.3); BLOOD UREA NITROGEN 22 mg/dl (9-20); CALCIUM 9.4 mg/dL (8.4-10.2); CARBON DIOXIDE 31 mmol/L (22-30); CHLORIDE 101 mmol/L (98-107); GFR AFRICAN-AMERICAN > 60; GLUCOSE,RANDOM 98 mg/dL (75-110); POTASSIUM 4.1 MMOL/L (3.6-5.0); SODIUM 141 mmol/l (132-148); TOTAL PROTEIN 6.2 G/DL (6.3-8.2)
--- NOTE | 2017-03-24 08:01 | CP.PCM.DIS ---
<Tiffany Baeza - Last Filed: 03/24/17 12:34> Provider - Provider Date of Admission: 03/17/17 19:56 Attending physician: Alex Ayala MD Time Spent in preparation of Discharge (in minutes): 45 Diagnosis - Discharge Diagnosis (1) Elevated troponin I level Status: Acute Comment: Work-up by cardiology negative for ischemic etiology. (2) Alcohol withdrawal Status: Acute Comment: Stable. c/w Librium (3) DVT prophylaxis Status: Acute Comment: c/w Xarelto. Hx MTHFR mutation/PE (4) History of pulmonary embolism Status: Acute Comment: On Xarelto, has MTHFR mutation (5) BPH (benign prostatic hyperplasia) Status: Acute Comment: Stable. c/w medication (6) Positive blood culture Status: Acute Comment: Likely contaminant, however ID request 7-10 days Vancomycin. TTE/CHELO negative for vegetation. Hospital Course - Lab Results Lab Results: Micro Results 03/19/17 14:10 Blood-Venous Blood Culture - Preliminary NO GROWTH AFTER 4 DAYS 03/19/17 14:00 Blood-Venous Blood Culture - Preliminary NO GROWTH AFTER 4 DAYS 03/20/17 09:15 Blood-Venous Blood Culture - Preliminary NO GROWTH AFTER 3 DAYS 03/17/17 22:40 Blood-Venous Blood Culture - Final Coagulase Neg Staphylococcus 03/17/17 22:40 Blood-Venous Gram Stain - Final 03/17/17 22:10 Blood-Venous S.aureus & Coag-Neg Staph PNA FISH - Final 03/17/17 22:10 Blood-Venous Blood Culture - Final Coagulase Neg Staphylococcus 03/17/17 22:10 Blood-Venous Gram Stain - Final Most Recent Lab Values WBC 4.3 K/uL (4.8-10.8) L 03/24/17 05:20 RBC 4.19 Mil/uL (4.40-5.90) L 03/24/17 05:20 Hgb 13.0 g/dL (12.0-18.0) 03/24/17 05:20 Hct 39.2 % (35.0-51.0) 03/24/17 05:20 MCV 93.5 fl (80.0-94.0) 03/24/17 05:20 MCH 31.0 pg (27.0-31.0) 03/24/17 05:20 MCHC 33.2 g/dL (33.0-37.0) 03/24/17 05:20 RDW 13.5 % (11.5-14.5) 03/24/17 05:20 Plt Count 212 K/uL (130-400) 03/24/17 05:20 MPV 9.7 fl (7.2-11.7) 03/22/17 04:10 Neut % (Auto) 62.5 % (50.0-75.0) 03/22/17 04:10 Lymph % (Auto) 11.8 % (20.0-40.0) L 03/22/17 04:10 [place] % (Auto) 18.4 % (0.0-10.0) H 03/22/17 04:10 Eos % (Auto) 4.5 % (0.0-4.0) H 03/22/17 04:10 Baso % (Auto) 2.8 % (0.0-2.0) H 03/22/17 04:10 Neut # 3.1 K/uL (1.8-7.0) 03/22/17 04:10 Lymph # 0.6 K/uL (1.0-4.3) L 03/22/17 04:10 [place] # 0.9 K/uL (0.0-0.8) H 03/22/17 04:10 Eos # 0.2 K/uL (0.0-0.7) 03/22/17 04:10 Baso # 0.1 K/uL (0.0-0.2) 03/22/17 04:10 Neutrophils % (Manual) 81 % (42-75) H 03/17/17 18:30 Lymphocytes % (Manual) 8 % (20-50) L 03/17/17 18:30 Reactive Lymphs % 1 % (0-0) H 03/17/17 18:30 Monocytes % (Manual) 10 % (0-10) 03/17/17 18:30 Toxic Granulation Present 03/17/17 18:30 Platelet Estimate Normal (NORMAL) 03/17/17 18:30 Large Platelets Present 03/17/17 18:30 Macrocytosis (manual) Slight 03/17/17 18:30 PT 12.3 Seconds (9.8-13.1) 03/22/17 04:10 INR 1.1 (0.9-1.2) 03/22/17 04:10 APTT 26.4 Seconds (25.6-37.1) 03/22/17 04:10 pO2 42 mm/Hg (30-55) 03/17/17 18:40 VBG pH 7.51 (7.32-7.43) H 03/17/17 18:40 VBG pCO2 29 mmHg (40-60) L 03/17/17 18:40 VBG HCO3 25.3 mmol/L 03/17/17 18:40 VBG Total CO2 24.0 mmol/L (22-28) 03/17/17 18:40 VBG O2 Sat (Calc) 84.1 % (40-65) H 03/17/17 18:40 VBG Base Excess 1.0 mmol/L (0.0-2.0) 03/17/17 18:40 VBG Potassium 3.3 mmol/L (3.6-5.2) L 03/17/17 18:40 Sodium 137.0 mmol/L (132-148) 03/17/17 18:40 Chloride 98.0 mmol/L (98-107) 03/17/17 18:40 Glucose 165 mg/dL (75-110) H 03/17/17 18:40 FiO2 21.0 % 03/17/17 18:40 Sodium 141 mmol/l (132-148) 03/24/17 05:20 Potassium 4.1 MMOL/L (3.6-5.0) 03/24/17 05:20 Chloride 101 mmol/L (98-107) 03/24/17 05:20 Carbon Dioxide 31 mmol/L (22-30) H 03/24/17 05:20 Anion Gap 13 (10-20) 03/24/17 05:20 BUN 22 mg/dl (9-20) H 03/24/17 05:20 Creatinine 0.8 mg/dL (0.8-1.5) 03/24/17 05:20 Est GFR ( Amer) > 60 03/24/17 05:20 Est GFR (Non-Af Amer) > 60 03/24/17 05:20 POC Glucose (mg/dL) 189 mg/dL (65-110) H 03/17/17 18:23 Random Glucose 98 mg/dL (75-110) 03/24/17 05:20 Calcium 9.4 mg/dL (8.4-10.2) 03/24/17 05:20 Phosphorus 2.2 mg/dl (2.5-4.5) L 03/17/17 18:30 Magnesium 1.6 MG/DL (1.6-2.3) 03/22/17 04:10 RBC Magnesium 5.8 mg/dL (4.0-6.4) 03/20/17 09:15 Total Bilirubin 0.7 mg/dl (0.2-1.3) 03/24/17 05:20 AST 58 U/L (17-59) 03/24/17 05:20 ALT 88 U/L (21-72) H 03/24/17 05:20 Alkaline Phosphatase 48 U/L (38-126) 03/24/17 05:20 Total Creatine Kinase 107 U/L (55-170) 03/20/17 09:15 CK-MB (Mass) 0.40 ng/mL (0.0-3.38) 03/20/17 09:15 Troponin I 0.5810 ng/mL (0.00-0.120) H* 03/18/17 05:30 Total Protein 6.2 G/DL (6.3-8.2) L 03/24/17 05:20 Albumin 3.4 g/dL (3.5-5.0) L 03/24/17 05:20 Globulin 2.9 gm/dL (2.2-3.9) 03/24/17 05:20 Albumin/Globulin Ratio 1.2 (1.0-2.1) 03/24/17 05:20 Lipase 143 U/L (23-300) 03/17/17 18:30 Vitamin B12 700 pg/mL (239-931) 03/19/17 05:30 Free T4 1.16 ng/dL (0.78-2.19) 03/18/17 05:30 Total T3 0.963 nmol/L (1.49-2.60) L 03/18/17 05:30 TSH 3rd Generation 4.15 mIU/ML (0.46-4.68) 03/18/17 05:30 Venous Blood Potassium 3.3 mmol/L (3.6-5.2) L 03/17/17 18:40 Urine Color [place] (YELLOW) 03/17/17 23:43 Urine Clarity Slighty-cloudy (Clear) 03/17/17 23:43 Urine pH 5.0 (5.0-8.0) 03/17/17 23:43 Ur Specific [place] 1.031 (1.003-1.030) H 03/17/17 23:43 Urine Protein 100 mg/dL (NEGATIVE) 03/17/17 23:43 Urine Glucose (UA) 150 mg/dL (Normal) 03/17/17 23:43 Urine Ketones 80 mg/dL (NEGATIVE) 03/17/17 23:43 Urine Blood Negative (NEGATIVE) 03/17/17 23:43 Urine Nitrate Negative (NEGATIVE) 03/17/17 23:43 Urine Bilirubin Small (NEGATIVE) 03/17/17 23:43 Urine Urobilinogen 4.0 mg/dL (0.2-1.0) 03/17/17 23:43 Ur Leukocyte Esterase Neg [place]/uL (Negative) 03/17/17 23:43 Urine RBC (Auto) < 1 /hpf (0-3) 03/17/17 23:43 Urine Microscopic WBC 2 /hpf (0-5) 03/17/17 23:43 Ur Squamous Epith Cells < 1 /hpf (0-5) 03/17/17 23:43 Hyaline Casts 3-5 /hpf (0-2) H 03/17/17 23:43 Vancomycin Trough 10.9 ug/mL (5.0-10.0) H 03/21/17 20:30 Urine Opiates Screen Negative (NEGATIVE) 03/17/17 23:43 Urine Methadone Screen Negative (NEGATIVE) 03/17/17 23:43 Ur Barbiturates Screen Negative (NEGATIVE) 03/17/17 23:43 Ur Phencyclidine Scrn Negative (NEGATIVE) 03/17/17 23:43 Ur Amphetamines Screen Negative (NEGATIVE) 03/17/17 23:43 U Benzodiazepines Scrn Negative (NEGATIVE) 03/17/17 23:43 U Oth Cocaine Metabols Negative (NEGATIVE) 03/17/17 23:43 U Cannabinoids Screen Negative (NEGATIVE) 03/17/17 23:43 Alcohol, Quantitative < 10 mg/dl (0-10) 03/17/17 18:30 C. difficile Ag & Toxin Positive antigen (NEGATIVE) 03/20/17 02:57 Hepatitis A IgM Ab Negative (NEGATIVE) 03/21/17 10:00 Hep Bs Antigen Negative (NEGATIVE) 03/21/17 10:00 Hep B Core IgM Ab Negative (NEGATIVE) 03/21/17 10:00 Hepatitis C Antibody Negative (NEGATIVE) 03/21/17 10:00 - Hospital Course Hospital Course: Patient seen and examined at bedside with attending. 67M admitted for acute onset of lower extremity weakness and found to have elevated Troponins. Cardiology determined unlikely due to ischemia, blood cultures were positive x1 for suspected contaminant. TTE/CHELO were negative for vegetation, ID consultation requested Vancomycin for 7-10 days. Patient continues on Xarelto in the setting of multifocal PEs/Hx- afib/MTHFR mutation. Current lower extremity venous duplex is negative. Patient is stable for transfer to TCU for antibiotics and PT. Discharge Exam - Head Exam Head Exam: ATRAUMATIC, NORMAL INSPECTION, NORMOCEPHALIC - Eye Exam Eye Exam: EOMI, PERRL - ENT Exam ENT Exam: Mucous Membranes Moist - Respiratory Exam Respiratory Exam: Clear to PA & Lateral, NORMAL BREATHING PATTERN. absent: Rales, Wheezes - Cardiovascular Exam Cardiovascular Exam: REGULAR RHYTHM. absent: JVD - GI/Abdominal Exam GI & Abdominal Exam: Normal Bowel Sounds, Soft. absent: Tenderness - Neurological Exam Neurological exam: Alert, Oriented x3 - Psychiatric Exam Psychiatric exam: Normal Affect, Normal Mood - Skin Skin Exam: Normal Color, Warm Discharge Plan - Discharge Medications Prescriptions: Vancomycin 1 GM [Vancomycin 1GM in Normal Saline Addvantage] 1 gm IVPB Q12 #10 bag - Follow Up Plan Condition: GUARDED Disposition: TRANSF TO SNF Patient education suggested?: Yes Instructions: Rivaroxaban (By mouth), Abuse of Alcohol (DC) Referrals: Alex Ayala MD [Staff Provider] - 1 Week <Alex Ayala - Last Filed: 04/02/17 16:07> Provider - Provider Date of Admission: 03/17/17 19:56 Attending physician: Alex Ayala MD Hospital Course - Lab Results Lab Results: Micro Results 03/20/17 09:15 Blood-Venous Blood Culture - Final NO GROWTH AFTER 5 DAYS 03/20/17 09:15 Blood-Venous Gram Stain - Final TEST NOT PERFORMED 03/19/17 14:10 Blood-Venous Blood Culture - Final NO GROWTH AFTER 5 DAYS 03/19/17 14:10 Blood-Venous Gram Stain - Final TEST NOT PERFORMED 03/19/17 14:00 Blood-Venous Blood Culture - Final NO GROWTH AFTER 5 DAYS 03/19/17 14:00 Blood-Venous Gram Stain - Final TEST NOT PERFORMED 03/17/17 22:40 Blood-Venous Blood Culture - Final Coagulase Neg Staphylococcus 03/17/17 22:40 Blood-Venous Gram Stain - Final 03/17/17 22:10 Blood-Venous S.aureus & Coag-Neg Staph PNA FISH - Final 03/17/17 22:10 Blood-Venous Blood Culture - Final Coagulase Neg Staphylococcus 03/17/17 22:10 Blood-Venous Gram Stain - Final Most Recent Lab Values WBC 4.3 K/uL (4.8-10.8) L 03/24/17 05:20 RBC 4.19 Mil/uL (4.40-5.90) L 03/24/17 05:20 Hgb 13.0 g/dL (12.0-18.0) 03/24/17 05:20 Hct 39.2 % (35.0-51.0) 03/24/17 05:20 MCV 93.5 fl (80.0-94.0) 03/24/17 05:20 MCH 31.0 pg (27.0-31.0) 03/24/17 05:20 MCHC 33.2 g/dL (33.0-37.0) 03/24/17 05:20 RDW 13.5 % (11.5-14.5) 03/24/17 05:20 Plt Count 212 K/uL (130-400) 03/24/17 05:20 MPV 9.7 fl (7.2-11.7) 03/22/17 04:10 Neut % (Auto) 62.5 % (50.0-75.0) 03/22/17 04:10 Lymph % (Auto) 11.8 % (20.0-40.0) L 03/22/17 04:10 [place] % (Auto) 18.4 % (0.0-10.0) H 03/22/17 04:10 Eos % (Auto) 4.5 % (0.0-4.0) H 03/22/17 04:10 Baso % (Auto) 2.8 % (0.0-2.0) H 03/22/17 04:10 Neut # 3.1 K/uL (1.8-7.0) 03/22/17 04:10 Lymph # 0.6 K/uL (1.0-4.3) L 03/22/17 04:10 [place] # 0.9 K/uL (0.0-0.8) H 03/22/17 04:10 Eos # 0.2 K/uL (0.0-0.7) 03/22/17 04:10 Baso # 0.1 K/uL (0.0-0.2) 03/22/17 04:10 Neutrophils % (Manual) 81 % (42-75) H 03/17/17 18:30 Lymphocytes % (Manual) 8 % (20-50) L 03/17/17 18:30 Reactive Lymphs % 1 % (0-0) H 03/17/17 18:30 Monocytes % (Manual) 10 % (0-10) 03/17/17 18:30 Toxic Granulation Present 03/17/17 18:30 Platelet Estimate Normal (NORMAL) 03/17/17 18:30 Large Platelets Present 03/17/17 18:30 Macrocytosis (manual) Slight 03/17/17 18:30 PT 12.3 Seconds (9.8-13.1) 03/22/17 04:10 INR 1.1 (0.9-1.2) 03/22/17 04:10 APTT 26.4 Seconds (25.6-37.1) 03/22/17 04:10 pO2 42 mm/Hg (30-55) 03/17/17 18:40 VBG pH 7.51 (7.32-7.43) H 03/17/17 18:40 VBG pCO2 29 mmHg (40-60) L 03/17/17 18:40 VBG HCO3 25.3 mmol/L 03/17/17 18:40 VBG Total CO2 24.0 mmol/L (22-28) 03/17/17 18:40 VBG O2 Sat (Calc) 84.1 % (40-65) H 03/17/17 18:40 VBG Base Excess 1.0 mmol/L (0.0-2.0) 03/17/17 18:40 VBG Potassium 3.3 mmol/L (3.6-5.2) L 03/17/17 18:40 Sodium 137.0 mmol/L (132-148) 03/17/17 18:40 Chloride 98.0 mmol/L (98-107) 03/17/17 18:40 Glucose 165 mg/dL (75-110) H 03/17/17 18:40 FiO2 21.0 % 03/17/17 18:40 Sodium 141 mmol/l (132-148) 03/24/17 05:20 Potassium 4.1 MMOL/L (3.6-5.0) 03/24/17 05:20 Chloride 101 mmol/L (98-107) 03/24/17 05:20 Carbon Dioxide 31 mmol/L (22-30) H 03/24/17 05:20 Anion Gap 13 (10-20) 03/24/17 05:20 BUN 22 mg/dl (9-20) H 03/24/17 05:20 Creatinine 0.8 mg/dL (0.8-1.5) 03/24/17 05:20 Est GFR ( Amer) > 60 03/24/17 05:20 Est GFR (Non-Af Amer) > 60 03/24/17 05:20 POC Glucose (mg/dL) 189 mg/dL (65-110) H 03/17/17 18:23 Random Glucose 98 mg/dL (75-110) 03/24/17 05:20 Calcium 9.4 mg/dL (8.4-10.2) 03/24/17 05:20 Phosphorus 2.2 mg/dl (2.5-4.5) L 03/17/17 18:30 Magnesium 1.6 MG/DL (1.6-2.3) 03/22/17 04:10 RBC Magnesium 5.7 mg/dL (4.0-6.4) 03/22/17 04:10 Total Bilirubin 0.7 mg/dl (0.2-1.3) 03/24/17 05:20 AST 58 U/L (17-59) 03/24/17 05:20 ALT 88 U/L (21-72) H 03/24/17 05:20 Alkaline Phosphatase 48 U/L (38-126) 03/24/17 05:20 Total Creatine Kinase 107 U/L (55-170) 03/20/17 09:15 CK-MB (Mass) 0.40 ng/mL (0.0-3.38) 03/20/17 09:15 Troponin I 0.5810 ng/mL (0.00-0.120) H* 03/18/17 05:30 Total Protein 6.2 G/DL (6.3-8.2) L 03/24/17 05:20 Albumin 3.4 g/dL (3.5-5.0) L 03/24/17 05:20 Globulin 2.9 gm/dL (2.2-3.9) 03/24/17 05:20 Albumin/Globulin Ratio 1.2 (1.0-2.1) 03/24/17 05:20 Lipase 143 U/L (23-300) 03/17/17 18:30 Vitamin B12 700 pg/mL (239-931) 03/19/17 05:30 Free T4 1.16 ng/dL (0.78-2.19) 03/18/17 05:30 Total T3 0.963 nmol/L (1.49-2.60) L 03/18/17 05:30 TSH 3rd Generation 4.15 mIU/ML (0.46-4.68) 03/18/17 05:30 Venous Blood Potassium 3.3 mmol/L (3.6-5.2) L 03/17/17 18:40 Urine Color [place] (YELLOW) 03/17/17 23:43 Urine Clarity Slighty-cloudy (Clear) 03/17/17 23:43 Urine pH 5.0 (5.0-8.0) 03/17/17 23:43 Ur Specific [place] 1.031 (1.003-1.030) H 03/17/17 23:43 Urine Protein 100 mg/dL (NEGATIVE) 03/17/17 23:43 Urine Glucose (UA) 150 mg/dL (Normal) 03/17/17 23:43 Urine Ketones 80 mg/dL (NEGATIVE) 03/17/17 23:43 Urine Blood Negative (NEGATIVE) 03/17/17 23:43 Urine Nitrate Negative (NEGATIVE) 03/17/17 23:43 Urine Bilirubin Small (NEGATIVE) 03/17/17 23:43 Urine Urobilinogen 4.0 mg/dL (0.2-1.0) 03/17/17 23:43 Ur Leukocyte Esterase Neg [place]/uL (Negative) 03/17/17 23:43 Urine RBC (Auto) < 1 /hpf (0-3) 03/17/17 23:43 Urine Microscopic WBC 2 /hpf (0-5) 03/17/17 23:43 Ur Squamous Epith Cells < 1 /hpf (0-5) 03/17/17 23:43 Hyaline Casts 3-5 /hpf (0-2) H 03/17/17 23:43 Vancomycin Trough 10.9 ug/mL (5.0-10.0) H 03/21/17 20:30 Urine Opiates Screen Negative (NEGATIVE) 03/17/17 23:43 Urine Methadone Screen Negative (NEGATIVE) 03/17/17 23:43 Ur Barbiturates Screen Negative (NEGATIVE) 03/17/17 23:43 Ur Phencyclidine Scrn Negative (NEGATIVE) 03/17/17 23:43 Ur Amphetamines Screen Negative (NEGATIVE) 03/17/17 23:43 U Benzodiazepines Scrn Negative (NEGATIVE) 03/17/17 23:43 U Oth Cocaine Metabols Negative (NEGATIVE) 03/17/17 23:43 U Cannabinoids Screen Negative (NEGATIVE) 03/17/17 23:43 Alcohol, Quantitative < 10 mg/dl (0-10) 03/17/17 18:30 C. difficile Ag & Toxin Positive antigen (NEGATIVE) 03/20/17 02:57 Hepatitis A IgM Ab Negative (NEGATIVE) 03/21/17 10:00 Hep Bs Antigen Negative (NEGATIVE) 03/21/17 10:00 Hep B Core IgM Ab Negative (NEGATIVE) 03/21/17 10:00 Hepatitis C Antibody Negative (NEGATIVE) 03/21/17 10:00
[2017-03-24 08:18] VITALS: RESP 18
[2017-03-24] MEDS: Multivitamin Vitamin B Complex (Nephro-Vite) Tab PO SCH (09:52)
[2017-03-24 12:01] VITALS: TEMP 98.3; O2SAT 95
[2017-03-24 16:39] VITALS: BP 124/81; PULSE 83
--- NOTE | 2017-03-24 21:24 | CP.PCM.PN ---
Subjective - Date & Time of Evaluation Date of Evaluation: 03/24/17 Time of Evaluation: 14:00 - Subjective Subjective: no complaints. no cp, no sob. Objective - Vital Signs/Intake and Output Vital Signs (last 24 hours): Temp Pulse Resp BP Pulse Ox 98.3 F 83 18 124/81 95 03/24/17 12:01 03/24/17 16:39 03/24/17 12:01 03/24/17 16:39 03/24/17 12:01 Intake and Output: 03/24/17 03/25/17 18:59 06:59 Intake Total 650 Balance 650 - Medications Medications: Current Medications Ascorbic Acid (Vitamin C 500 Mg Tab) 500 mg PO DAILY [facility] Last Admin: 03/24/17 09:53 Dose: 500 mg Aspirin (Aspirin Chewable) 81 mg PO DAILY [facility] Last Admin: 03/24/17 09:51 Dose: 81 mg Finasteride (Proscar) 5 mg PO DAILY [facility] Last Admin: 03/24/17 09:52 Dose: 5 mg Folic Acid (Folic Acid) 1 mg PO DAILY [facility] Last Admin: 03/24/17 09:51 Dose: 1 mg Vancomycin HCl 1 gm/ Sodium (Chloride) 250 mls @ 166.667 mls/hr IVPB Q12 [facility] Latanoprost (Xalatan Opht) 1 drop OU HS [facility] Last Admin: 03/23/17 22:08 Dose: 1 drop Metoprolol Tartrate (Lopressor) 12.5 mg PO Q8 [facility] Last Admin: 03/24/17 16:39 Dose: 12.5 mg Naproxen (Naprosyn Tab) 250 mg PO BID PRN PRN Reason: Pain, moderate (4-7) Rivaroxaban (Xarelto) 20 mg PO DAILY [facility] PRN Reason: Protocol Last Admin: 03/24/17 09:53 Dose: 20 mg Tamsulosin HCl (Flomax) 0.4 mg PO DAILY [facility] Last Admin: 03/24/17 09:51 Dose: 0.4 mg Thiamine HCl (Vitamin B1 Tab) 100 mg PO DAILY [facility] Last Admin: 03/24/17 09:53 Dose: 100 mg Vitamin B Complex/Vit C/Folic Acid (Nephro-Teja) 1 tab PO DAILY [facility] Last Admin: 03/24/17 09:52 Dose: 1 tab - Labs Labs: 03/24/17 05:20 03/24/17 05:20 PT 12.3 Seconds (9.8-13.1) 03/22/17 04:10 INR 1.1 (0.9-1.2) 03/22/17 04:10 APTT 26.4 Seconds (25.6-37.1) 03/22/17 04:10 - Constitutional Appears: Well - Head Exam Head Exam: ATRAUMATIC, NORMAL INSPECTION, NORMOCEPHALIC - Eye Exam Eye Exam: EOMI, Normal appearance, PERRL Pupil Exam: NORMAL ACCOMODATION, PERRL - ENT Exam ENT Exam: Mucous Membranes Moist, Normal Exam - Neck Exam Neck Exam: Full ROM, Normal Inspection. absent: Lymphadenopathy - Respiratory Exam Respiratory Exam: Clear to Ausculation Bilateral, NORMAL BREATHING PATTERN - Cardiovascular Exam Cardiovascular Exam: REGULAR RHYTHM, +S1, +S2, Murmur - GI/Abdominal Exam GI & Abdominal Exam: Soft, Normal Bowel Sounds. absent: Tenderness - Rectal Exam Rectal Exam: Deferred - Extremities Exam Extremities Exam: Full ROM, Normal Capillary Refill, Normal Inspection. absent : Joint Swelling, Pedal Edema - Back Exam Back Exam: NORMAL INSPECTION - Neurological Exam Neurological Exam: Alert, Awake, CN II-XII Intact, Oriented x3 - Psychiatric Exam Psychiatric exam: Normal Affect, Normal Mood - Skin Skin Exam: Dry, Intact, Normal Color, Warm Assessment and Plan (1) Alcohol withdrawal Status: Acute (2) Alcoholism /alcohol abuse Status: Acute (3) Elevated troponin Status: Resolved (4) Hypertension Status: Acute (5) Pulmonary emboli Status: Chronic (6) Tachycardia Status: Resolved - Assessment and Plan (Free Text) Plan: pt improving. no endocarditis on jan Pt did not have ekg changes or symptoms with troponin bump (minimal), given etoh withdrawl and low bp stress test was not performed. He should have a stress test as outpatient with Dr Rider in clinic He can be taken off xarelto next month if no evidence of PE or hypercoag state Continue current meds at home obstain from etoh repeat cultures negative x 3 55 min total care time.
--- NOTE | 2017-04-07 11:21 | CARD ---
APPROVED REPORT EXAM: Transesophageal echocardiogram with color flow Doppler. INDICATION Infection:Subacute bacterial endocarditis LEFT VENTRICLE The left ventricle is normal size. There is normal left ventricular wall thickness. The left ventricular function is normal. The left ventricular ejection fraction is within the normal range. There is normal LV segmental wall motion. No left ventricle thrombus noted on this study. There is no ventricular septal defect visualized. There is no left ventricular aneurysm. RIGHT VENTRICLE The right ventricle is normal size. There is normal right ventricular wall thickness. The right ventricular systolic function is normal. ATRIA The left atrium size is normal. NO HARPAL THROMBUS The right atrium size is normal. The interatrial septum is intact with no evidence for an atrial septal defect. AORTIC VALVE The aortic valve is normal in structure and function. No aortic regurgitation is present. There is no aortic valvular stenosis. There is no aortic valvular vegetation. MITRAL VALVE The mitral valve is normal in structure and function. There is no evidence of mitral valve prolapse. There is no mitral valve stenosis. Mitral regurgitation is mild. TRICUSPID VALVE The tricuspid valve is normal in structure and function. There is mild tricuspid regurgitation. There is no tricuspid valve prolapse or vegetation. There is no tricuspid valve stenosis. PULMONIC VALVE The pulmonary valve is normal in structure and function. There is no pulmonic valvular regurgitation. There is no pulmonic valvular stenosis. GREAT VESSELS The aortic root is normal in size. The ascending aorta is normal in size. The pulmonary artery is normal. PERICARDIAL EFFUSION The pericardium appears normal. There is no pleural effusion. <Conclusion> NO EVIDENCE OF VEGETATIONS OR MASSES The left ventricular function is normal. NO HARPAL THROMBUS The aortic valve is normal in structure and function. Mitral regurgitation is mild. There is mild tricuspid regurgitation. The pulmonary valve is normal in structure and function.
== END 2017-03-24 20:50 | DRG 897 ==
LOC: H.ER 17:46 → H.ERHOLD 19:56 → H.TEL 22:58
PROVIDERS: ADMIT Internal Medicine; ATTEND Internal Medicine
PROC: B246ZZ4 Ultrasonography of Right and Left Heart, Transesophageal (ICD-10-PCS; principal; 2017-03-22)
DX: F10.239 Alcohol dependence with withdrawal, unspecified (principal); I27.82 Chronic pulmonary embolism; I48.2 Chronic atrial fibrillation; E72.12 Methylenetetrahydrofolate reductase deficiency; K70.10 Alcoholic hepatitis without ascites; I10 Essential (primary) hypertension; Y90.0 Blood alcohol level of less than 20 mg/100 ml; Z79.01 Long term (current) use of anticoagulants; Z88.0 Allergy status to penicillin; N40.0 Benign prostatic hyperplasia without lower urinary tract symptoms; R00.0 Tachycardia, unspecified; R78.9 Finding of unspecified substance, not normally found in blood; B95.7 Other staphylococcus as the cause of diseases classified elsewhere